=== PATIENT | female | born 1940 | race Caucasian/White ===

== ENCOUNTER → 2016-12-18 | Outpatient (CLI) | payer OTHER ==
[2016-09-04 07:44] VITALS: BP 160/72
--- NOTE | 2016-12-18 17:00 | MG ---
HISTORY: SCREENING Comparison: Multiple priors dating back to February 10, 2008 FINDINGS: Bilateral CC and MLO projections of the right and left breast were obtained. Extremely dense fibrog landular tissue is seen to be present without significant interval change. No suspicious architectu ral distortion, mass or clustered microcalcifications can be observed to suggest malignancy. No ski n thickening or nipple retraction is appreciated. No pathological lymphadenopathy can be identifie d. Benign-appearing calcifications are noted within the right and left breast. IMPRESSION: NO RADIOGRAPHIC EVIDENCE OF MALIGNANCY. ACR CATEGORY 2 - benign findings. FOLLOW-UP EXAM 1 YEAR. Diagnostic CAD was utilized and reviewed. * 0 (ZERO) - ASSESSMENT INCOMPLETE; ADDITIONAL IMAGING IS NEEDED. * 1/ (ONE) - NEGATIVE. * 2/II (TWO) - BENIGN FINDINGS. * 3/III (THREE) - PROBABLY BENIGN FINDING; SHORT INTERVAL FOLLOW-UP SUGGESTED. * 4/IV (FOUR) - SUSPICIOUS ABNORMALITY; BIOPSY SHOULD BE CONSIDERED. * 5/V (FIVE) - HIGHLY SUSPICIOUS OF MALIGNANCY; BIOPSY SHOULD BE PERFORMED. A NEGATIVE X-RAY REPORT SHOULD NOT DELAY BIOPSY IF A DOMINANT OR CLINICALLY SUSPICIOUS MASS IS PRESENT; 4 TO 8 PERCENT OF CANCERS ARE NOT IDENTIFIED BY X-RAY. A NEG ATIVE REPORT MAY REINFORCE THE CLINICAL IMPRESSION. ADENOSIS AND DENSE BREASTS MAY OBSCURE AN UNDER LYING NEOPLASM. Reported By:
== END ==
LOC: RAD 09:57
PROVIDERS: ATTEND Specialist
DX: Z12.31 Encounter for screening mammogram for malignant neoplasm of breast (principal)
CPT/HCPCS: 77067

== ENCOUNTER 2017-01-18 17:18 | Emergency (ER) | payer OTHER ==
[2017-01-18 17:23] VITALS: BMI 17.4
--- NOTE | 2017-01-18 17:49 | DR.GENAD ---
HPI - PCP Primary Care Physician: lola - HPI Comment HPI Comment: PATIENT WAS SITTING AND STATED PASSING OUT. SHE WAS HELD DID NOT FALL. BP WAS 70/40. LAYING DOWN SHE SAID SHE FELLS FINE. ORTHOSTIC BP IN ED WAS POSITIVE FOR ORTHOSTATIC HYPOTENSION. DENIES HEADACHE. - Complaint/Symptoms Chief Complaint Doctors Comments: PATIENT PASS OUT AT HOME, BP WAS LOW. 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 - Family History History of Family Medical Conditions: Yes Family Medical History: Diabetes Mellitus, Cancer, [place], Coronary Artery Disease, Heart Failure, Sudden Cardiac , Hypertension - Social History Does patient currently use any type of tobacco product: Yes Have you used tobacco products in the last 12 months: Yes Type of Tobacco Use: Cigarettes How many years tobacco product used: 30 Does any household member use tobacco: No Alcohol Use: None Do you use any recreational Drugs:: No Lives With: Family Lives Where: Home - infectious screening In the last 2 months have you had wt loss of >10#?: NO Have you had fever, night sweats or hemotysis?: No Have you traveled outside the country in the last 6 months?: No Isolation: Standard ROS - Review of Systems Constitutional: Weakness, Fatigue. negative: See HPI, Fever, Loss of Appetite Eyes: No Symptoms Reported. negative: Eye Pain, Discharge ENTM: No Symptoms Reported. negative: Ear Pain, Nose Discharge, Nose Congestion , Throat Pain Respiratoy: No Symptoms Reported, Short of Breath (ON EXERSION.). negative: Non -Productive Cough, Wheezing, Hemoptysis Cardiovascular: No Symptoms Reported, Chest Pain (SORENESS PRECORDIAL AREA) Genitourinary: No Symptoms Reported Neurological: Weakness, Dizziness Musculoskeletal: No Symptoms Reported Integumentary: No Symptoms Reported Hematologic/Lymphatic: No Symptoms Reported Endocrine: No Symptoms Reported All Other Systems: Reviewed and Negative PE - Vital Signs Vitals: Pulse Rate [Right Brachial] 84 Pulse Rate [Standing] 115 Pulse Rate [Sitting] 93 Pulse Rate 87 Respiratory Rate 18 Blood Pressure [Right Arm] 130/58 Blood Pressure [Standing] 81/51 Blood Pressure [Sitting] 94/48 Blood Pressure 93/45 O2 Sat by Pulse Oximetry 98 - General Limitations: No Limitations General Appearance: Alert - Head Head Exam: Normal Inspection - Eyes Eye exam: Normal Appearance - ENT ENT Exam: Normal External Ear Exam External Ear Exam: Normal External Inspection TM/Canal Exam: Bilateral Normal Nose Exam: Normal Nose Exam Mouth Exam: Normal Inspection Throat Exam: Normal Inspection - Neck Neck Exam: Trachea Midline - Chest Chest Inspection: Symmetric Chest Wall Rise - Respiratory Respiratory Exam: Normal Lung Sounds Bilat Respiratory Exam: Bilateral Rhonchi, Lower Rhonchi - Cardiovascular Cardiovascular Exam: Regular Rate, Normal Rhythm, Normal Heart Sounds - Abdominal Exam Abdominal Exam: Normal Bowel Sounds, Soft. negative: Tenderness - Extremities Extremities Exam: Normal Inspection - Back Back Exam: Normal Inspection - Neurologic Neurological Exam: Alert, Oriented X3, CN II-XII Intact, Reflexes Normal. negative: Motor Sensory Deficit - Psychiatric Psychiatric Exam: Normal Affect, Normal Mood - Skin Skin Exam: Normal Color MDM - Additional Information Additional Information Obtained From: Family - Differential Diagnosis Differential Diagnosis: SYNCOPAL EPISODE. [place], DEHYDRATION, ELECTRLYTE IMBALANCE. CVA, TIA Course - Treatment Treatment: SEE ORDERS. PATIENT DID NOT WISH TO BE OBSERVE IN HOSPITAL SIGN AMA. - Education/Counseling Education/Counseling: Patient, Education Educated On: Diagnosis, Needs for Follow Up ROR - Labs Reviewed Laboratory Results Reviewed?: Yes Result Diagrams: 01/18/17 17:30 01/18/17 17:30 Laboratory: WBC 8.6 X10^3/uL (3.6-10.0) 01/18/17 17:30 RBC 4.47 X10^6/uL (3.5-5.4) 01/18/17 17:30 Hgb 14.2 g/dL (12.0-16.0) 01/18/17 17:30 Hct 41.4 % (36.0-47.0) 01/18/17 17:30 MCV 92.8 fL (80.0-100.0) 01/18/17 17:30 MCH 31.7 pg (27.0-34.0) 01/18/17 17:30 MCHC 34.2 g/dL (33.0-35.0) 01/18/17 17:30 RDW 13.7 % (11.6-16.5) 01/18/17 17:30 Plt Count 317 X10^3/uL (150.0-450.0) 01/18/17 17:30 MPV 6.6 fL (7.4-11.0) L 01/18/17 17:30 Neut % 70.8 % (42.0-75.0) 01/18/17 17: Lymph % 20.8 % (21.0-51.0) L 01/18/17 17:30 [place] % 6.2 % (0.0-13.0) 01/18/17:30 Eos % 1.1 % (0.9-2.9) 01/18/17 17: Baso % 1.1 % (0.2-1.0) H 01/18/17 17:30 Neut # 6.1 x10^3/uL (2.2-4.8) H 01/18/17 17:30 Lymph # 1.8 X10^3/uL (1.3-2.9) 01/18/17 17:30 [place] # 0.5 x10^3/uL (0.3-0.8) 01/18/17 17:30 Eos # 0.1 x10^3/uL (0.0-0.2) 01/18/17 17:30 Baso # 0.1 X10^3/uL (0.0-0.1) 01/18/17 17:30 Absolute Nucleated RBC 0.0 /100WBC 01/18/17 17:30 Sodium 138 mmol/L (136-145) 01/18/17 17:30 Corrected Sodium 139 mmol/L (136-145) 01/18/17 17:30 Potassium 3.5 mmol/L (3.5-5.1) 01/18/17 17:30 Chloride 100 mmol/L (98-107) 01/18/17 17:30 Carbon Dioxide 30.5 mmol/L (21-32) 01/18/17 17:30 BUN 12 mg/dL (7-18) 01/18/17 17:30 Creatinine 1.21 mg/dL (0.55-1.02) H 01/18/17 17:30 Est GFR (MDRD) Af Amer 56 (>60) L 01/18/17 17:30 Est GFR (MDRD) Non-Af 46 (>60) L 01/18/17 17:30 Glucose 150 mg/dL (65-99) H 01/18/17 17:30 Calcium 9.3 mg/dL (8.5-10.1) 01/18/17 17:30 Corrected Calcium TNP 01/18/17 17:30 Total Bilirubin 0.70 mg/dL (0.2-1.0) 01/18/17 17:30 AST 13 Units/L (15-37) L 01/18/17 17:30 ALT 22 Units/L (12-78) 01/18/17 17:30 Alkaline Phosphatase 90 Units/L (46-116) 01/18/17 17:30 Creatine Kinase 43 Units/L (26-192) 01/18/17 17:30 CK-MB (CK-2) < 1.0 ng/mL (0-4.0) 01/18/17 17:30 CK/CKMB % Calc 2.3 % (<4) 01/18/17 17:30 Troponin I < 0.02 ng/mL (0-1.5) 01/18/17 17:30 Total Protein 8.0 g/dL (6.4-8.2) 01/18/17 17:30 Albumin 3.8 g/dL (3.4-5.0) 01/18/17 17:30 Globulin 4.2 g/dL (2.5-4.5) 01/18/17 17:30 Albumin/Globulin Ratio 0.9 Ratio (1.1-2.1) L 01/18/17 17:30 - XRAY XRAY Interpreted by: Radiologist XRAY Findings: REPORT DISCUSS WITH PATIENT AND FAMILY. - EKG Rhythm: NSR (EKG NOTED) - Diagnosis Discharge Problem: Syncope, Orthostatic hypotension - Discharge Plan Disposition: AGAINST MEDICAL ADVICE Condition: Stable - Follow ups/Referrals Follow ups/Referrals: CATARINO HOWARD [Primary Care Provider] - 3 days - Instructions
[2017-01-18] MEDS ORDERED: NS 1000 ML 1,000 ML ONE (17:55)
[2017-01-18] MEDS ORDERED: NS 1000 ML 1,000 ML IV ONE (17:57)
[2017-01-18 18:02] LABS: BASOPHILS # (AUTO) 0.1 X10^3/uL (0.0-0.1); BASOPHILS % (AUTO) 1.1 % (0.2-1.0); EOSINOPHILS # (AUTO) 0.1 x10^3/uL (0.0-0.2); EOSINOPHILS % (AUTO) 1.1 % (0.9-2.9); HEMATOCRIT 41.4 % (36.0-47.0); HEMOGLOBIN 14.2 g/dL (12.0-16.0); LYMPHOCYTES # (AUTO) 1.8 X10^3/uL (1.3-2.9); LYMPHOCYTES % (AUTO) 20.8 % (21.0-51.0); MEAN CORPUSCULAR HEMOGLOBIN 31.7 pg (27.0-34.0); MEAN CORPUSCULAR HGB CONC 34.2 g/dL (33.0-35.0); MEAN CORPUSCULAR VOLUME 92.8 fL (80.0-100.0); MEAN PLATELET VOLUME 6.6 fL (7.4-11.0); MONOCYTES # (AUTO) 0.5 x10^3/uL (0.3-0.8); MONOCYTES % (AUTO) 6.2 % (0.0-13.0); NEUTROPHILS # (AUTO) 6.1 x10^3/uL (2.2-4.8); NEUTROPHILS % (AUTO) 70.8 % (42.0-75.0); PLATELET COUNT 317 X10^3/uL (150.0-450.0); RED BLOOD COUNT 4.47 X10^6/uL (3.5-5.4); RED CELL DISTRIBUTION WIDTH 13.7 % (11.6-16.5); WHITE BLOOD COUNT 8.6 X10^3/uL (3.6-10.0)
--- NOTE | 2017-01-18 18:11 | RAD ---
HISTORY: Chest pain, low blood pressure Study: Single view of the chest Comparison: October 01, 2016 Findings: The trachea is midline. The cardiac silhouette is unremarkable. Interstitial changes are seen with in both lungs. Biapical pleural thickening is noted. The lung apices are not entirely included. Gran ulomatous changes are again noted within both lungs. The aortic knob is partially calcified. IMPRESSION: 1. No acute cardiopulmonary disease. Reported By:
[2017-01-18 18:17] LABS: BLOOD UREA NITROGEN 12 mg/dL (7-18); CALCIUM 9.3 mg/dL (8.5-10.1); CARBON DIOXIDE 30.5 mmol/L (21-32); CHLORIDE 100 mmol/L (98-107); COR NA(FOR HYPERGLY) 139 mmol/L (136-145); CREATININE 1.21 mg/dL (0.55-1.02); GLUCOSE 150 mg/dL (65-99); SODIUM 138 mmol/L (136-145); TROPONIN I < 0.02 ng/mL (0-1.5); eGFR BLACK RACES 56 (>60); eGFR NON BLACK RACES 46 (>60)
[2017-01-18 18:22] LABS: ALANINE AMINOTRANSFERASE 22 Units/L (12-78); ALBUMIN 3.8 g/dL (3.4-5.0); ALKALINE PHOSPHATASE 90 Units/L (46-116); ASPARTATE AMINO TRANSFERASE 13 Units/L (15-37); CREATINE KINASE 43 Units/L (26-192); CREATINE KINASE MB < 1.0 ng/mL (0-4.0)
[2017-01-18 18:28] LABS: CKMB % 2.3 % (<4)
[2017-01-18 18:37] VITALS: BP 130/58
== END 2017-01-18 19:13 | disposition left against medical advice (07) ==
LOC: ER 17:26
DX: R55 Syncope and collapse (principal); I95.1 Orthostatic hypotension
CPT/HCPCS: 36415; 71010; 80053; 82550; 82553; 84484; 85025; 93005; 93010; 96365; 99283; A4222

== ENCOUNTER 2017-02-13 19:47 | Emergency (ER) | payer OTHER ==
[2017-02-13 19:57] VITALS: BP 158/62; BMI 17.6
[2017-02-13] MEDS ORDERED: ROCEPHIN VIAL 1 GM IM ONE (21:36)
[2017-02-13] MEDS ORDERED: ADACEL TDaP IM ONE ×2 (21:37→22:00)
--- NOTE | 2017-02-13 21:41 | DR.GENAD ---
HPI - PCP Primary Care Physician: Sally - Complaint/Symptoms Chief Complaint Doctors Comments: Swelling left leg after having skin cancer removed at the [facility] about eight days ago. States she had multiple lesions removed but none turned red like this one. States she has been having pain in her left leg but denies fever, chills, nausea, vomiting or drainage from the lesion. States she is allergic to Penicillin and Codiene. She is unsure of her last tetanus shot. She denies chest pain or SOB. States she just want an antibiotic shot and medicines for an infection. Chief Complaint:: "About 8 days ago I had skin cancer removed from 7 different places. 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, 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 - Family History History of Family Medical Conditions: Yes Family Medical History: Diabetes Mellitus, Cancer, [place], Coronary Artery Disease, Heart Failure, Sudden Cardiac , Hypertension - Social History Does patient currently use any type of tobacco product: No Have you used tobacco products in the last 12 months: No Type of Tobacco Use: None Does any household member use tobacco: No Alcohol Use: None Do you use any recreational Drugs:: No Lives With: Family Lives Where: Home - infectious screening In the last 2 months have you had wt loss of >10#?: NO Have you had fever, night sweats or hemotysis?: No Have you traveled outside the country in the last 6 months?: No Isolation: Standard ROS - Review of Systems Constitutional: No Symptoms Reported. negative: See HPI, Chills, Diaphoresis, Fever, Malaise, Weakness, Irritable, Fatigue, Loss of Appetite, Other Eyes: No Symptoms Reported ENTM: No Symptoms Reported Respiratoy: No Symptoms Reported Cardiovascular: No Symptoms Reported Gastrointestinal/Abdominal: No Symptoms Reported Genitourinary: No Symptoms Reported Neurological: No Symptoms Reported. negative: See HPI, Anxiety, Depressed, Emotional Problems, Headache, Numbness, Paresthesia, Pre-existing Deficit, Seizure, Tingling, Tremors, Weakness, Dizziness, Problems Walking, Speech Problem, Other Musculoskeletal: No Symptoms Reported, Left, Leg (erythema) Integumentary: No Symptoms Reported, Lesions (surgical wound left lower leg; no discharge) Hematologic/Lymphatic: No Symptoms Reported Endocrine: No Symptoms Reported. negative: See HPI, Excessive Sweating, Flushing, Intolerance to Cold, Intolerance to Heat, Increased Hunger, Increased Thirst, Increased Urine, Unexplained Weight Gain, Unexplained Weight Loss, Failure to Thrive, Decreased Appetite, Other Psychiatric: No Symptoms Reported PE - Vital Signs Vitals: Temperature 98.4 F Pulse Rate 88 Respiratory Rate 18 Blood Pressure [Right Arm] 130/58 Blood Pressure [Standing] 81/51 Blood Pressure [Sitting] 94/48 Blood Pressure 158/62 O2 Sat by Pulse Oximetry 98 - General Limitations: No Limitations General Appearance: Alert, In Distress (mild) - Head Head Exam: Normal Inspection, Atraumatic, Normocephalic - Eyes Eye exam: Normal Appearance, PERRL, EOMI. negative: Scleral Icterus, Conjunctival Injection, Nystagmus, Miosis, Mydrasis, Periorbital Swelling, Periorbital Tenderness, Other - ENT ENT Exam: Normal Exam, Normal Oropharynx, Normal External Ear Exam, Mucous Membranes Moist, TM's Normal Bilaterally External Ear Exam: Normal External Inspection TM/Canal Exam: Bilateral Normal Nose Exam: Normal Nose Exam. negative: Sinus Tenderness, Nasal Deviation, Crepitus, Septal Hematoma, Laceration, Abrasion, Other Mouth Exam: Normal Inspection. negative: Drooling, Trismus, Lip Swelling, Tongue Elevation, Tongue Swelling, Laceration, Other Throat Exam: Normal Inspection. negative: Tonsillar Erythema, Tonsillomegaly, Tonsillar Exudate, R Peritonsillar Mass, L Peritonsillar Mass, Muffled Voice, Other - Neck Neck Exam: Normal Inspection, Full ROM, Trachea Midline. negative: Tenderness, Meningismus, Lymphadenopathy, Thyromegaly, Other - Chest Chest Inspection: Normal Inspection, Symmetric Chest Wall Rise - Respiratory Respiratory Exam: Normal Lung Sounds Bilat Respiratory Exam: Bilateral Clear to Auscultation - Cardiovascular Cardiovascular Exam: Regular Rate, Normal Rhythm, Normal Heart Sounds. negative : Bradycardia, Tachycardia, Irregular Rhythm, Systolic Murmur, Diastolic Murmur , Rubs, Gallop, Clicks, JVD, +S1, +S2, +S3, +S4, Other - Abdominal Exam Abdominal Exam: Normal Inspection, Normal Bowel Sounds, Soft. negative: Distention, Tenderness, Guarding, Rebound, Rigidity, Dimnished Bowel Sounds, Hyperactive Bowel Sounds, Hypoactive Bowel Sounds, Organomegaly, Trauma, Incision, Ascites, Mass, Bruit, Pulsatile Mass, Hernia, Other Abdominal Tenderness: negative: RUQ, RLQ, LUQ, LLQ, Epigastrium, Suprapubic, Diffuse, Mild, Moderate, Severe, Other - Extremities Extremities Exam: Normal Inspection, Full ROM, Tenderness (left lower extremity with erythema; macular erythema ), Normal Capillary Refill - Back Back Exam: Normal Inspection, Full ROM. negative: Tenderness, (R) CVA Tenderness, (L) CVA Tenderness, Muscle Spasm, Paraspinal Tenderness, Vertebral Tenderness, Rashes, (R) Sciatic Notch Tenderness, (L) Sciatic Notch Tendern, (R ) Straight Leg Raise, (L) Straight Leg Raise, Other - Neurologic Neurological Exam: Alert, Oriented X3, CN II-XII Intact, Normal Gait, Reflexes Normal - Skin Skin Exam: Warm, Dry, Intact, Normal Color - Diagnosis Discharge Problem: Cellulitis of left leg, Essential hypertension - Discharge Plan Disposition: 01 HOME, SELF-CARE Condition: Stable Prescriptions: Cephalexin [KEFLEX CAP 500 MG *] 500 mg PO TID #30 cap Levofloxacin [LEVAQUIN TAB 500 MG *] 500 mg PO DAILY #10 tab Mupirocin Oint [BACTROBAN OINT 2%] 1 applic EXT BID #22 gm - Follow ups/Referrals Follow ups/Referrals: CATARINO HOWARD [Primary Care Provider] - 3 days - Instructions Instructions: Cellulitis, MRSA Infection, Adult, Hypertension, [id number]
[2017-02-13] MEDS ORDERED: ROCEPHIN VIAL 1 GM ONE (21:59)
[2017-02-13] MEDS ORDERED: RIFADIN CAP 300 MG PO SCH (22:00)
[2017-02-13] MEDS ORDERED: XYLOCAINE 1 % (PLAIN) ONE (22:00)
[2017-02-13] MEDS ORDERED: RIFADIN CAP 300 MG PO ONE (22:14)
== END 2017-02-13 22:15 | disposition home or self-care (01) ==
LOC: ER 20:01
DX: L03.116 Cellulitis of left lower limb (principal); I10 Essential (primary) hypertension
CPT/HCPCS: 90471; 96372; 99282; 99283; J0696; J2001

== ENCOUNTER 2017-04-23 07:46 | Day surgery (SDC) | payer OTHER ==
[2017-04-23] MEDS ORDERED: D5 LR 1000 ML 1,000 ML IV ONE (07:54)
[2017-04-23] MEDS ORDERED: DIPRIVAN VIAL 20 ML ONE (09:06)
[2017-04-23 10:12] VITALS: BP 156/73
== END 2017-04-23 09:50 | disposition home or self-care (01) ==
LOC: SURG1 07:46
PROVIDERS: ATTEND Internal Medicine Gastroenterology
PROC: 0DB68ZX Excision of Stomach, Via Natural or Artificial Opening Endoscopic, Diagnostic (ICD-10-PCS; principal; 2017-04-23 09:45)
PROC: 0D757ZZ Dilation of Esophagus, Via Natural or Artificial Opening (ICD-10-PCS; principal; 2017-04-23 09:45)
PROC: 0DB88ZX Excision of Small Intestine, Via Natural or Artificial Opening Endoscopic, Diagnostic (ICD-10-PCS; principal; 2017-04-23 09:45)
PROC: 0DJ08ZZ Inspection of Upper Intestinal Tract, Via Natural or Artificial Opening Endoscopic (ICD-10-PCS; principal; 2017-04-23 09:45)
DX: R13.19 Other dysphagia (principal); R10.13 Epigastric pain; K21.9 Gastro-esophageal reflux disease without esophagitis; K20.8 Other esophagitis; K22.2 Esophageal obstruction; K29.60 Other gastritis without bleeding
CPT/HCPCS: A4217; J3490; J7120

== ENCOUNTER → 2017-05-13 | Outpatient (CLI) | payer OTHER ==
[2017-04-23 10:12] VITALS: BP 156/73
== END ==
LOC: LAB 09:51
PROVIDERS: ATTEND Internal Medicine Gastroenterology
DX: Z86.010 Personal history of colon polyps (principal)
CPT/HCPCS: 82270

== ENCOUNTER → 2017-06-02 | Outpatient (CLI) | payer OTHER ==
--- NOTE | 2017-06-03 11:17 | RAD ---
HISTORY: Neck pain Study: 3 views of the cervical spine. Comparison: None Findings: Grade 1 anterolisthesis of C5 on C6. Severe multilevel degenerative disc disease. The vertebral body heights are normal. No prevertebral soft tissue swelling can be identified. The odontoid appears in tact. The lateral masses of C1 align with the body of C2. IMPRESSION: 1. Severe multilevel degenerative disc disease with grade 1 anterolisthesis of C4 on C5 Reported By:
== END | disposition home or self-care (01) ==
LOC: RAD 09:44
PROVIDERS: ATTEND Internal Medicine Cardiovascular Disease
DX: M54.2 Cervicalgia (principal); M50.321 Other cervical disc degeneration at C4-C5 level
CPT/HCPCS: 72040

== ENCOUNTER → 2017-09-01 | Outpatient (CLI) | payer OTHER ==
[2017-08-11 15:30] VITALS: BP 143/67
--- NOTE | 2017-09-01 10:50 | MRI ---
MRI SPINE CERVICAL WITHOUT CONTRAST CLINICAL HISTORY: 77-year-old female with chronic neck pain and left radicular symptoms. COMPARISON: Radiographs of the cervical spine 06/02/2017. Technique: Multiplanar, multisequence MRI images of the cervical spine were obtained without the adm inistration of intravenous contrast. FINDINGS: Straightening of the cervical lordosis as imaged. Subtle degenerative anterolisthesis C4 on C5 and retrolisthesis C6 on C7. The craniocervical junction is normal. Overall preservation of verte bral body height and signal. Loss of disc space and signal C6-C7. Remaining disc height and signal ar e preserved. Cord signal is normal. The visualized posterior fossa structures are normal. C2-C3: No central canal stenosis. Severe left-sided facet and uncovertebral joint hypertrophy with sp urring produces moderate left neural foraminal stenosis. C3-C4: Broad-based disc osteophyte complex narrows canal 9.4 mm. Uncovertebral and facet joint hypert rophy produce mild left neural foraminal stenosis. C4-C5: Broad-based disc osteophyte complex narrows canal 9.3 mm. Uncovertebral and facet joint hypert rophy produce mild right neural foraminal stenosis. C5-C6: Broad-based disc osteophyte with a left central component effaces the ventral subarachnoid spa mauri with mild flattening of the left ventral cord without cord signal change. Uncovertebral and facet joint hypertrophy produce mild right neural foraminal stenosis. C6-C7: Broad-based disc osteophyte complex with a central component effaces the ventral subarachnoid spaces with flattening of the ventral cord without cord signal change. Central canal measures 6.5 mm. Uncovertebral and facet joint hypertrophy produce mild right neural foraminal stenosis. C7-T1: Broad-based disc osteophyte complex narrows canal at 10.3 mm without cord impingement or signa l change uncovertebral facet joint hypertrophy produce mild right neural foraminal stenosis. Paraspinous soft tissues are unremarkable. IMPRESSION: 1. Multilevel disc degeneration and spondyloarthropathy. 2. See level by level descriptions above. Reported By:
== END ==
LOC: RAD 09:13
PROVIDERS: ATTEND Nurse Practitioner Family
DX: M50.321 Other cervical disc degeneration at C4-C5 level (principal)
CPT/HCPCS: 72141

== ENCOUNTER 2017-10-09 12:02 | Observation (INO) | payer OTHER ==
[2017-10-09] MEDS ORDERED: ZOFRAN INJ 4 MG VIAL IVP PRN (13:31)
[2017-10-09] MEDS ORDERED: APRESOLINE INJ 20 MG VIAL IVP PRN (13:31)
--- NOTE | 2017-10-09 14:06 | DR.H&P ---
H&P - History & Physical for Day of: H&P Date: 10/09/17 - Chief Complaint Chief Complaint: severe ESPAÑA, dizziness, elevated blood pressure - Allergies Allergies/Adverse Reactions: Allergies Allergy/AdvReac Type Severity Reaction Status Date / Time codeine Allergy Verified 08/11/17 14:57 levofloxacin Allergy Verified 08/11/17 14:57 Penicillins Allergy Verified 08/11/17 14:57 Sulfa (Sulfonamide Allergy Verified 08/11/17 14:57 Antibiotics) [SULFA] - History of Present Illness History of Present Illness: PT IS 77 WF DIRECT ADMIT FROM DR FAULKNER OFFICE WITH CO INTRACTABLE ESPAÑA, DIZZINESS AND ELEVATED BLOOD PRESSURE. PT BP IN OFFICE WAS 220/110 PT GIVEN CATAPREX 0.1MG PO X 1 DOSE WITH BP 188/100. PT CONTINUES TO CO ESPAÑA AND DIZZINESS. PT HAS 2 KNOWN CEREBROVASCULAR ANEURYSMS FOLLOWED BY NEUROVASCULAR SURGEON. PT HAD COPD, CAD, LORENA, OA, GERD. PT ADMITTED FOR BP CONTROL AND TREATMENT AND EVALUATION OF ESPAÑA. 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, Other - Family History Family Medical History: Diabetes Mellitus, Cancer, [place], Coronary Artery Disease, Heart Failure, Sudden Cardiac , Hypertension - Social History Does patient currently use any type of tobacco product: No Have you used tobacco products in the last 12 months: Yes Type of Tobacco Use: Cigarettes Does any household member use tobacco: No Alcohol Use: None Drug Use: None - Review of Systems Constitutional: Weakness Eyes: No Symptoms Reported ENT: No Symptoms Reported Respiratory: No Symptoms Reported Cardiovascular: No Symptoms Reported Gastrointestinal: No Symptoms Reported, Nausea Musculoskeletal: Back Pain, Neck Pain Skin: No Symptoms Reported Neurological: Weakness, Other (DIZZINESS) - Physical Exam Vital Signs: Temperature 98.7 F Pulse Rate [Left Brachial] 71 Respiratory Rate 20 Blood Pressure [Left Arm] 142/67 Blood Pressure [Right Arm] 143/67 Blood Pressure [Standing] 81/51 Blood Pressure [Sitting] 94/48 Blood Pressure 143/67 O2 Sat by Pulse Oximetry 97 Oriented: Normal Eyes: Normal Ear: Normal Nose: Normal Throat: Normal Respiratory: RLL Diminished, LLL Diminished Cardiovascular: Normal : Normal Auscultation: Bowel Sounds: Normal Tenderness: Normal Skin: Normal Musculoskeletal: Back:Thoracic, Back:Lumbar, Tender (NECK TENDERNESS) Psychiatric: Anxiety Affect: Anxious Speech Pattern: Clear, Appropriate - Assessment/Plan (1) Hypertensive urgency Status: Acute Plan: ADMIT, BP CONTROL. CARDIAC ENZYMES AND EKG. CXR ON ADMISSION, SUPPLEMENTAL O2 PRN, CT BRAIN W/O STAT. PAIN CONTROL. RESUME HOME MEDS (2) Dizziness Status: Acute (3) Headache Status: Acute (4) LORENA (generalized anxiety disorder) Status: Acute (5) COPD (chronic obstructive pulmonary disease) Status: Chronic
[2017-10-09 14:10] LABS: BASOPHILS # (AUTO) 0.1 X10^3/uL (0.0-0.1); BASOPHILS % (AUTO) 1.2 % (0.2-1.0); EOSINOPHILS % (AUTO) 0.4 % (0.9-2.9); HEMATOCRIT 34.7 % (36.0-47.0); HEMOGLOBIN 12.3 g/dL (12.0-16.0); LYMPHOCYTES # (AUTO) 1.5 X10^3/uL (1.3-2.9); LYMPHOCYTES % (AUTO) 15.2 % (21.0-51.0); MEAN CORPUSCULAR HEMOGLOBIN 32.9 pg (27.0-34.0); MEAN CORPUSCULAR HGB CONC 35.3 g/dL (33.0-35.0); MEAN CORPUSCULAR VOLUME 93.1 fL (80.0-100.0); MEAN PLATELET VOLUME 6.6 fL (7.4-11.0); MONOCYTES # (AUTO) 0.6 x10^3/uL (0.3-0.8); MONOCYTES % (AUTO) 5.5 % (0.0-13.0); NEUTROPHILS # (AUTO) 7.9 x10^3/uL (2.2-4.8); NEUTROPHILS % (AUTO) 77.7 % (42.0-75.0); PLATELET COUNT 248 X10^3/uL (150.0-450.0); RED BLOOD COUNT 3.73 X10^6/uL (3.5-5.4); RED CELL DISTRIBUTION WIDTH 13.7 % (11.6-16.5); WHITE BLOOD COUNT 10.1 X10^3/uL (3.6-10.0)
[2017-10-09] MEDS: NORCO 10/325 TAB PO PRN ×2 (14:10→20:51)
[2017-10-09 14:25] LABS: ALANINE AMINOTRANSFERASE 28 Units/L (12-78); ALBUMIN 3.4 g/dL (3.4-5.0); ALKALINE PHOSPHATASE 94 Units/L (46-116); ASPARTATE AMINO TRANSFERASE 20 Units/L (15-37); BLOOD UREA NITROGEN 13 mg/dL (7-18); CALCIUM 9.2 mg/dL (8.5-10.1); CARBON DIOXIDE 30.2 mmol/L (21-32); CHLORIDE 100 mmol/L (98-107); CKMB % 2.1 % (<4); CREATINE KINASE 71 Units/L (26-192); CREATINE KINASE MB 1.5 ng/mL (0-4.0); CREATININE 0.94 mg/dL (0.55-1.02); SODIUM 136 mmol/L (136-145); TROPONIN I < 0.02 ng/mL (0-1.5); eGFR BLACK RACES > 60 (>60); eGFR NON BLACK RACES > 60 (>60)
[2017-10-09 14:31] LABS: BILIRUBIN,URINE NEGATIVE (NEGATIVE); BLOOD/HEMOGLOBIN,URINE 2+ (NEGATIVE); GLUCOSE, URINE NEGATIVE (NEGATIVE); KETONES,URINE NEGATIVE (NEGATIVE); LEUKOCYTE ESTERASE ,URINE NEGATIVE (NEGATIVE); NITRITES,URINE NEGATIVE (NEGATIVE); PROTEIN,URINE 1+ (NEGATIVE); UROBILINOGEN,URINE NORMAL (NORMAL)
[2017-10-09 14:39] LABS: APPEARANCE,URINE CLEAR (CLEAR); BACTERIA,URINE NEGATIVE /HPF (NEGATIVE); COLOR,URINE YELLOW (YELLOW); RBC,URINE 0-1 /HPF (NONE SEEN); SQUAMOUS EPITHELIAL CELL,UR RARE /HPF (NEGATIVE)
--- NOTE | 2017-10-09 15:13 | RAD ---
Examination: AP chest History: Headache, hypertension Comparison 01/18/2017 Findings: Continued normal heart size, arteriosclerotic aorta, hyperinflated lungs. Calcifications pr ojected over the right lower chest may be within the lung or breast. There is no evidence for acute i nfiltrate or pleural effusion. There is a moderate scoliosis. Impression: No interval change or acute findings. Reported By:
--- NOTE | 2017-10-09 15:21 | CT ---
HISTORY: Headache with high blood pressure. Study: CT brain without contrast Comparison: CT head dated October 25, 2013. Technique: Multiple axial images of the brain were obtained from the skull base to the vertex without administra tion of IV contrast. Dose reduction techniques including Automated Exposure Control (AEC) and adjust ment of mA and kV were utilized. Findings: Age-related cortical atrophy and chronic small vessel ischemic changes. No acute intraparenchymal hem orrhage or mass can be identified. No extra-axial fluid collections are seen. No alteration in the attenuation of the brain parenchyma can be identified to suggest acute or subacute ischemic change. The ventricular system is symmetric and nondilated. The extracranial structures are grossly unremark able. IMPRESSION: No obvious acute intracranial pathology. If clinically concerned for acute ischemia/infar ction, MRI brain is more sensitive. Reported By:
[2017-10-09] MEDS ORDERED: ULTRAM PO PRN (17:24)
[2017-10-09] MEDS ORDERED: RESTORIL CAP 15 MG PO PRN (20:10)
[2017-10-09] MEDS: PATIENT'S HOME MEDICATION PO SCH (20:46)
[2017-10-09] MEDS: PriLOSEC PO SCH (20:51)
[2017-10-09] MEDS ORDERED: AMBIEN PO PRN (21:00)
[2017-10-09] MEDS ORDERED: XANAX PO PRN (21:00)
[2017-10-09] MEDS ORDERED: REQUIP PO SCH (21:00)
[2017-10-09] MEDS ORDERED: SINGULAIR TAB 10 MG PO SCH (21:00)
[2017-10-10 06:54] LABS: BASOPHILS # (AUTO) 0.1 X10^3/uL (0.0-0.1); BASOPHILS % (AUTO) 2.4 % (0.2-1.0); EOSINOPHILS # (AUTO) 0.2 x10^3/uL (0.0-0.2); EOSINOPHILS % (AUTO) 3.9 % (0.9-2.9); HEMATOCRIT 34.7 % (36.0-47.0); HEMOGLOBIN 12.1 g/dL (12.0-16.0); LYMPHOCYTES # (AUTO) 1.9 X10^3/uL (1.3-2.9); LYMPHOCYTES % (AUTO) 37.4 % (21.0-51.0); MEAN CORPUSCULAR HEMOGLOBIN 32.5 pg (27.0-34.0); MEAN CORPUSCULAR HGB CONC 34.9 g/dL (33.0-35.0); MEAN PLATELET VOLUME 6.8 fL (7.4-11.0); MONOCYTES # (AUTO) 0.5 x10^3/uL (0.3-0.8); MONOCYTES % (AUTO) 9.8 % (0.0-13.0); NEUTROPHILS # (AUTO) 2.4 x10^3/uL (2.2-4.8); NEUTROPHILS % (AUTO) 46.5 % (42.0-75.0); PLATELET COUNT 264 X10^3/uL (150.0-450.0); RED BLOOD COUNT 3.73 X10^6/uL (3.5-5.4); RED CELL DISTRIBUTION WIDTH 13.9 % (11.6-16.5); WHITE BLOOD COUNT 5.1 X10^3/uL (3.6-10.0)
[2017-10-10 07:01] LABS: ALANINE AMINOTRANSFERASE 25 Units/L (12-78); ALBUMIN 3.1 g/dL (3.4-5.0); ALKALINE PHOSPHATASE 84 Units/L (46-116); ASPARTATE AMINO TRANSFERASE 18 Units/L (15-37); BLOOD UREA NITROGEN 15 mg/dL (7-18); CALCIUM 9.1 mg/dL (8.5-10.1); CARBON DIOXIDE 30.2 mmol/L (21-32); CHLORIDE 103 mmol/L (98-107); COR CA(FOR HYPOALB) 9.8 mg/dL (8.5-10.1); CREATININE 1.03 mg/dL (0.55-1.02); SODIUM 140 mmol/L (136-145); TOTAL PROTEIN 6.7 g/dL (6.4-8.2); eGFR BLACK RACES > 60 (>60); eGFR NON BLACK RACES 55 (>60)
[2017-10-10] MEDS: PriLOSEC PO SCH (08:33)
[2017-10-10] MEDS: PATIENT'S HOME MEDICATION PO SCH (08:34)
[2017-10-10] MEDS ORDERED: ZYLOPRIM PO SCH (09:00)
[2017-10-10] MEDS ORDERED: MOBIC TAB 15 MG PO SCH (09:00)
[2017-10-10] MEDS ORDERED: TOPROL XL PO SCH (09:00)
[2017-10-10] MEDS ORDERED: FLEXERIL TAB 10 MG PO SCH (09:00)
[2017-10-10 11:52] VITALS: BMI 15.7
[2017-10-10] MEDS ORDERED: ZESTRIL TAB 10 MG ONE (14:41)
[2017-10-10 14:46] VITALS: BP 136/58
[2017-10-11] MEDS ORDERED: ZESTRIL TAB 10 MG PO SCH (09:00)
== END 2017-10-10 14:55 | disposition home or self-care (01) ==
LOC: ICU 12:02
PROVIDERS: ADMIT Internal Medicine; ATTEND Internal Medicine
DX: I16.0 Hypertensive urgency (principal); R51 Headache; R42 Dizziness and giddiness; J44.9 Chronic obstructive pulmonary disease, unspecified; Z66 Do not resuscitate; F41.8 Other specified anxiety disorders; R94.31 Abnormal electrocardiogram [ECG] [EKG]
CPT/HCPCS: 36415; 70450; 71045; 80053; 81001; 82550; 82553; 84484; 85025; 93005; 93010; A4216; A4222; G0378

== ENCOUNTER → 2017-12-30 | Outpatient (CLI) | payer OTHER ==
--- NOTE | 2017-12-31 16:37 | MG ---
HISTORY: SCREENING Comparison: Multiple priors dating back to March 09, 2014 FINDINGS: Bilateral CC and MLO projections of the right and left breast were obtained. Extremely dense fibrogl andular tissue is seen to be present without significant interval change. No suspicious architectura l distortion, mass or clustered microcalcifications can be observed to suggest malignancy. No skin t hickening or nipple retraction is appreciated. No pathological lymphadenopathy can be identified. B enign-appearing calcifications are noted within the right and left breast. IMPRESSION: NO RADIOGRAPHIC EVIDENCE OF MALIGNANCY. ACR CATEGORY 2 - benign findings. FOLLOW-UP EXAM 1 YEAR. Diagnostic CAD was utilized and reviewed. * 0 (ZERO) - ASSESSMENT INCOMPLETE; ADDITIONAL IMAGING IS NEEDED. * 1/ (ONE) - NEGATIVE. * 2/II (TWO) - BENIGN FINDINGS. * 3/III (THREE) - PROBABLY BENIGN FINDING; SHORT INTERVAL FOLLOW-UP SUGGESTED. * 4/IV (FOUR) - SUSPICIOUS ABNORMALITY; BIOPSY SHOULD BE CONSIDERED. * 5/V - HIGHLY SUSPICIOUS OF MALIGNANCY; BIOPSY SHOULD BE PERFORMED. A NEGATIVE X-RAY REPORT SHOULD NOT DELAY BIOPSY IF A DOMINANT OR CLINICALLY SUSPICIOUS MASS IS PRESENT; 4 TO 8 PERCENT OF CANCERS ARE NOT IDENTIFIED BY X-RAY. A NEGA TIVE REPORT MAY REINFORCE THE CLINICAL IMPRESSION. ADENOSIS AND DENSE BREASTS MAY OBSCURE AN UNDERLY ING NEOPLASM. Reported By:
== END ==
LOC: RAD 10:19
PROVIDERS: ATTEND Specialist
DX: Z12.31 Encounter for screening mammogram for malignant neoplasm of breast (principal)
CPT/HCPCS: 77067

== ENCOUNTER 2019-02-09 15:16 | Inpatient (IN) ==
[2019-02-09 17:18] VITALS: BMI 17.9
[2019-02-09] MEDS ORDERED: STERILE WATER IRRIGATION ONE (17:29)
[2019-02-09] MEDS ORDERED: PERCOCET TAB 5/325 MG PO PRN (17:56)
[2019-02-09] MEDS ORDERED: ULTRAM PO PRN (18:01)
[2019-02-09 18:32] LABS: BASOPHILS # (AUTO) 0.1 X10^3/uL (0.0-0.1); BASOPHILS % (AUTO) 1.1 % (0.2-1.0); EOSINOPHILS # (AUTO) 0.1 x10^3/uL (0.0-0.2); EOSINOPHILS % (AUTO) 1.1 % (0.9-2.9); HEMATOCRIT 35.3 % (36.0-47.0); HEMOGLOBIN 12.3 g/dL (12.0-16.0); LYMPHOCYTES # (AUTO) 2.2 X10^3/uL (1.3-2.9); LYMPHOCYTES % (AUTO) 26.1 % (21.0-51.0); MEAN CORPUSCULAR HEMOGLOBIN 31.5 pg (27.0-34.0); MEAN CORPUSCULAR HGB CONC 34.9 g/dL (33.0-35.0); MEAN CORPUSCULAR VOLUME 90.2 fL (80.0-100.0); MEAN PLATELET VOLUME 6.3 fL (7.4-11.0); MONOCYTES # (AUTO) 0.5 x10^3/uL (0.3-0.8); MONOCYTES % (AUTO) 6.2 % (0.0-13.0); NEUTROPHILS # (AUTO) 5.6 x10^3/uL (2.2-4.8); NEUTROPHILS % (AUTO) 65.5 % (42.0-75.0); PLATELET COUNT 296 X10^3/uL (150.0-450.0); RED BLOOD COUNT 3.91 X10^6/uL (3.5-5.4); RED CELL DISTRIBUTION WIDTH 14.6 % (11.6-16.5); WHITE BLOOD COUNT 8.6 X10^3/uL (3.6-10.0)
--- NOTE | 2019-02-09 18:32 | DR.H&P ---
H&P - History & Physical for Day of: H&P Date: 02/09/19 - Chief Complaint Chief Complaint: right leg red, swollen, hot to touch and very tender - History of Present Illness History of Present Illness: 78 WF DIRECT ADMIT FROM DR FAULKNER OFFICE WITH CO RRL REDNESS AND EDEMA WITH INCREASED WARMTH AND TENDERNESS FOR 3 WEEKS. PT HAS TAKEN DIURETICS, ELEVATED AND TAKEN ROUND OF ANTIBIOTICS WITHOUT IMROVEMENT. PT HAD US RLE NEGATIVE FOR DVT. PT HAS PMH OF HTN, CAD, COPD, BRAIN ANEURYSM, OA. PT ADMITTED FOR TREATMENT OF CELLULITIS, FAILED OUTPT THERAPY. - Past Medical History Past Medical History: Hypertension, COPD, Asthma, Arthritis - Past Surgical History Surgical History: Other - Family History Family Medical History: [place], Hypertension - Social History Does patient currently use any type of tobacco product: Yes Have you used tobacco products in the last 12 months: Yes Type of Tobacco Use: Cigarettes How many years tobacco product used: 43 Does any household member use tobacco: No Alcohol Use: None Drug Use: Prescription Drugs - Medications Home Medications: codeine Allergy (Verified 11/12/18 08:45) levofloxacin Allergy (Verified 11/12/18 08:45) Penicillins Allergy (Verified 11/12/18 08:45) Sulfa (Sulfonamide Antibiotics) [SULFA] Allergy (Verified 11/12/18 08:45) - Review of Systems Constitutional: Weakness Eyes: No Symptoms Reported ENT: No Symptoms Reported Respiratory: Shortness of Breath Cardiovascular: Edema Gastrointestinal: No Symptoms Reported Genitourinary: No Symptoms Reported Musculoskeletal: Back Pain, Leg Pain Skin: Other (REDNESS RLE) Neurological: No Symptoms Reported - Physical Exam Vital Signs: Temperature 98.0 F Pulse Rate [Right Brachial] 62 Respiratory Rate 20 Blood Pressure [Left Arm] 169/78 Blood Pressure [Right Arm] 132/63 Blood Pressure [Standing] 81/51 Blood Pressure [Sitting] 94/48 Blood Pressure 169/78 O2 Sat by Pulse Oximetry 96 Oriented: Normal Eyes: Normal Ear: Normal Nose: Normal Throat: Normal Respiratory: RLL Diminished, LLL Diminished Cardiovascular: Normal, Edema : Normal Auscultation: Bowel Sounds: Normal Palpation: Normal Tenderness: Normal Skin: Red, Tender, Hot Musculoskeletal: Right, Leg, Back:Lumbar, Swelling, Tender Psychiatric: Anxiety Affect: Anxious Speech Pattern: Clear, Appropriate - Assessment/Plan (1) Cellulitis of right lower leg Status: Acute Plan: ADMIT. ADMISSION LABS CBC CMP BC. XRAY RLE FOOT AND ANKLE. IV HYDRATION, PAIN CONTROL, IV TEFLARO. CXR ON ADMISSION, RESP CONSULT TO RESUME HOME DUO NEBS. VERIFY HOME MEDICAION (2) Arthritis Status: Chronic (3) COPD (chronic obstructive pulmonary disease) Status: Chronic (4) Hypertension Status: Chronic (5) LORENA (generalized anxiety disorder) Status: Acute - Allergies Allergies/Adverse Reactions: Allergies Allergy/AdvReac Type Severity Reaction Status Date / Time codeine Allergy Verified 11/12/18 08:45 levofloxacin Allergy Verified 11/12/18 08:45 Penicillins Allergy Verified 11/12/18 08:45 Sulfa (Sulfonamide Allergy Verified 11/12/18 08:45 Antibiotics) [SULFA]
[2019-02-09 18:34] LABS: ALANINE AMINOTRANSFERASE 24 Units/L (12-78); ALBUMIN 3.8 g/dL (3.4-5.0); ALKALINE PHOSPHATASE 88 Units/L (46-116); ASPARTATE AMINO TRANSFERASE 20 Units/L (15-37); BLOOD UREA NITROGEN 27 mg/dL (7-18); CALCIUM 9.6 mg/dL (8.5-10.1); CARBON DIOXIDE 28.3 mmol/L (21-32); CHLORIDE 96 mmol/L (98-107); CREATININE 2.02 mg/dL (0.55-1.02); SODIUM 131 mmol/L (136-145); TOTAL PROTEIN 8.2 g/dL (6.4-8.2); eGFR NON BLACK RACES 25 (>60)
[2019-02-09] MEDS: NS 1000 ML 1,000 ML IV SCH (18:35)
[2019-02-09 19:29] LABS: BILIRUBIN,URINE NEGATIVE (NEGATIVE); BLOOD/HEMOGLOBIN,URINE 1+ (NEGATIVE); GLUCOSE, URINE NEGATIVE (NEGATIVE); KETONES,URINE NEGATIVE (NEGATIVE); LEUKOCYTE ESTERASE ,URINE 1+ (NEGATIVE); NITRITES,URINE NEGATIVE (NEGATIVE); PROTEIN,URINE NEGATIVE (NEGATIVE); UROBILINOGEN,URINE NORMAL (NORMAL)
[2019-02-09 19:30] LABS: APPEARANCE,URINE CLEAR (CLEAR); COLOR,URINE YELLOW (YELLOW)
[2019-02-09 19:38] LABS: BACTERIA,URINE TRACE /HPF (NEGATIVE); RBC,URINE 0-2 /HPF (NONE SEEN); SQUAMOUS EPITHELIAL CELL,UR FEW /HPF (NEGATIVE)
--- NOTE | 2019-02-09 19:49 | RAD ---
HISTORY: Shortness of breath Study: Single view of the chest. Comparison: None. Findings: The cardiomediastinal silhouette is normal. No focal consolidations, pleural effusions or pneumothorax. Calcified pulmonary granulomas. Degenerative dextroscoliosis. Bilateral hyper expansion with coarsening of interstitial markings. IMPRESSION: 1. No acute cardiopulmonary process. 2. Findings of COPD and prior granulomatous disease.. Reported By:
--- NOTE | 2019-02-09 19:58 | RAD ---
HISTORY: Lower extremity swelling Study: 2 views of the right foot. Comparison: None Findings: No acute fracture or dislocation. Joint spaces are well aligned. No significant soft tissue swelling or injury can be seen. IMPRESSION: 1. No acute abnormalities in the right foot. Reported By:
--- NOTE | 2019-02-09 19:58 | RAD ---
HISTORY: Swelling and redness Study: 2 views of the right ankle. Comparison: None Findings: No acute fracture or dislocation. The ankle mortise remains well aligned. No significant soft tissue swelling or injury can be seen. IMPRESSION: 1. No acute abnormalities of the right ankle. Reported By:
[2019-02-09] MEDS ORDERED: PATIENT'S HOME MEDICATION (Eszopiclone [Lunesta] 3 MG) PO SCH (21:00)
[2019-02-09] MEDS: XANAX PO SCH (21:39)
[2019-02-09] MEDS: COLACE CAP 100 MG PO SCH (21:39)
[2019-02-09] MEDS: REQUIP PO SCH (21:39)
[2019-02-09] MEDS: TEFLARO 600 MG in NS 100 ML IV + SPIKE MINIBAG* 100 ML IV SCH ×2 (21:40→21:44)
[2019-02-09] MEDS: LOVENOX INJ 40 MG SYR SC SCH (21:41)
[2019-02-09] MEDS: MILK OF MAGNESIA PO SCH (21:41)
[2019-02-09] MEDS ORDERED: RESTORIL CAP 15 MG PO PRN (21:44)
[2019-02-10 05:30] LABS: BASOPHILS # (AUTO) 0.1 X10^3/uL (0.0-0.1); BASOPHILS % (AUTO) 1.3 % (0.2-1.0); EOSINOPHILS # (AUTO) 0.2 x10^3/uL (0.0-0.2); EOSINOPHILS % (AUTO) 2.7 % (0.9-2.9); HEMATOCRIT 32.5 % (36.0-47.0); HEMOGLOBIN 11.5 g/dL (12.0-16.0); LYMPHOCYTES # (AUTO) 1.9 X10^3/uL (1.3-2.9); LYMPHOCYTES % (AUTO) 31.2 % (21.0-51.0); MEAN CORPUSCULAR HEMOGLOBIN 31.9 pg (27.0-34.0); MEAN CORPUSCULAR HGB CONC 35.3 g/dL (33.0-35.0); MEAN CORPUSCULAR VOLUME 90.4 fL (80.0-100.0); MEAN PLATELET VOLUME 6.6 fL (7.4-11.0); MONOCYTES # (AUTO) 0.5 x10^3/uL (0.3-0.8); MONOCYTES % (AUTO) 7.7 % (0.0-13.0); NEUTROPHILS # (AUTO) 3.5 x10^3/uL (2.2-4.8); NEUTROPHILS % (AUTO) 57.1 % (42.0-75.0); PLATELET COUNT 263 X10^3/uL (150.0-450.0); RED BLOOD COUNT 3.59 X10^6/uL (3.5-5.4); RED CELL DISTRIBUTION WIDTH 14.7 % (11.6-16.5); WHITE BLOOD COUNT 6.1 X10^3/uL (3.6-10.0)
[2019-02-10 05:32] LABS: ALANINE AMINOTRANSFERASE 27 Units/L (12-78); ALBUMIN 3.1 g/dL (3.4-5.0); ALKALINE PHOSPHATASE 86 Units/L (46-116); ASPARTATE AMINO TRANSFERASE 26 Units/L (15-37); BLOOD UREA NITROGEN 23 mg/dL (7-18); CHLORIDE 101 mmol/L (98-107); COR CA(FOR HYPOALB) 9.7 mg/dL (8.5-10.1); CREATININE 1.67 mg/dL (0.55-1.02); SODIUM 137 mmol/L (136-145); eGFR NON BLACK RACES 32 (>60)
[2019-02-10] MEDS: TEFLARO 600 MG in NS 100 ML IV + SPIKE MINIBAG* 100 ML IV SCH ×4 (06:47→21:04)
[2019-02-10] MEDS: REQUIP PO SCH ×2 (08:09→21:05)
[2019-02-10] MEDS: LOVENOX INJ 40 MG SYR SC SCH (08:10)
[2019-02-10] MEDS: XANAX PO SCH (08:11)
[2019-02-10] MEDS: TOPROL XL PO SCH (08:11)
[2019-02-10] MEDS: MILK OF MAGNESIA PO SCH ×3 (08:12→21:04)
[2019-02-10] MEDS: NS 1000 ML 1,000 ML IV SCH ×2 (08:21→21:05)
[2019-02-10] MEDS ORDERED: XANAX PO PRN (10:13)
[2019-02-10] MEDS ORDERED: MAALOX or MYLANTA PO PRN (19:46)
[2019-02-10] MEDS ORDERED: RESTORIL CAP 15 MG PO SCH (21:00)
[2019-02-10] MEDS: COLACE CAP 100 MG PO SCH (21:04)
[2019-02-11 05:31] LABS: BASOPHILS # (AUTO) 0.1 X10^3/uL (0.0-0.1); BASOPHILS % (AUTO) 2.2 % (0.2-1.0); EOSINOPHILS # (AUTO) 0.1 x10^3/uL (0.0-0.2); EOSINOPHILS % (AUTO) 2.6 % (0.9-2.9); HEMATOCRIT 33.8 % (36.0-47.0); HEMOGLOBIN 11.7 g/dL (12.0-16.0); LYMPHOCYTES # (AUTO) 1.6 X10^3/uL (1.3-2.9); LYMPHOCYTES % (AUTO) 29.5 % (21.0-51.0); MEAN CORPUSCULAR HEMOGLOBIN 31.7 pg (27.0-34.0); MEAN CORPUSCULAR HGB CONC 34.7 g/dL (33.0-35.0); MEAN CORPUSCULAR VOLUME 91.3 fL (80.0-100.0); MEAN PLATELET VOLUME 6.6 fL (7.4-11.0); MONOCYTES # (AUTO) 0.6 x10^3/uL (0.3-0.8); MONOCYTES % (AUTO) 10.5 % (0.0-13.0); NEUTROPHILS # (AUTO) 3.1 x10^3/uL (2.2-4.8); NEUTROPHILS % (AUTO) 55.2 % (42.0-75.0); PLATELET COUNT 271 X10^3/uL (150.0-450.0); RED CELL DISTRIBUTION WIDTH 14.7 % (11.6-16.5); WHITE BLOOD COUNT 5.6 X10^3/uL (3.6-10.0)
[2019-02-11 05:47] LABS: ALANINE AMINOTRANSFERASE 28 Units/L (12-78); ALBUMIN 3.2 g/dL (3.4-5.0); ALKALINE PHOSPHATASE 100 Units/L (46-116); ASPARTATE AMINO TRANSFERASE 28 Units/L (15-37); BLOOD UREA NITROGEN 17 mg/dL (7-18); CALCIUM 8.8 mg/dL (8.5-10.1); CARBON DIOXIDE 26.8 mmol/L (21-32); CHLORIDE 103 mmol/L (98-107); COR CA(FOR HYPOALB) 9.4 mg/dL (8.5-10.1); CREATININE 1.31 mg/dL (0.55-1.02); SODIUM 136 mmol/L (136-145); TOTAL PROTEIN 7.4 g/dL (6.4-8.2); eGFR NON BLACK RACES 42 (>60)
[2019-02-11] MEDS: LOVENOX INJ 40 MG SYR SC SCH (08:13)
[2019-02-11] MEDS: TEFLARO 600 MG in NS 100 ML IV + SPIKE MINIBAG* 100 ML IV SCH (08:14)
[2019-02-11] MEDS: TOPROL XL PO SCH (08:14)
[2019-02-11] MEDS: MILK OF MAGNESIA PO SCH (08:14)
[2019-02-11] MEDS: REQUIP PO SCH (08:14)
[2019-02-11] MEDS ORDERED: XANAX PO SCH (09:00)
[2019-02-11 12:13] VITALS: BP 187/77
[2019-02-11] MEDS: NS 1000 ML 1,000 ML IV SCH (12:13)
[2019-02-11] MEDS ORDERED: CLEOCIN PO SCH (14:00)
== END 2019-02-11 13:00 | disposition home or self-care (01) | DRG 603 ==
LOC: MED/SURG 16:01
PROVIDERS: ADMIT Internal Medicine; ATTEND Internal Medicine
DX: L03.115 Cellulitis of right lower limb; J44.9 Chronic obstructive pulmonary disease, unspecified; I11.0 Hypertensive heart disease with heart failure; E87.1 Hypo-osmolality and hyponatremia; I25.10 Atherosclerotic heart disease of native coronary artery without angina pectoris; F41.8 Other specified anxiety disorders; M13.89 Other specified arthritis, multiple sites
CPT/HCPCS: 36415; 71010; 71045; 73610; 73630; 80053; 81001; 84550; 85025; 87040; A4222; J0712; J1650; J7030; J7050

== ENCOUNTER 2019-05-02 17:06 | Observation (INO) ==
[2019-05-02] MEDS ORDERED: ZOFRAN INJ 4 MG VIAL IVP PRN (17:19)
--- NOTE | 2019-05-02 17:56 | DR.H&P ---
H&P - History & Physical for Day of: H&P Date: 05/02/19 - Chief Complaint Chief Complaint: FALL, SEVERE PAIN RIGHT LEG, RIGHT BUTTOCK - History of Present Illness History of Present Illness: 78 WF DIRECT ADMIT FROM DR ESCAMILLA OFFICE AFTER CO ESENTING WITH CO FALL WITH INTRACTABLE LOWER BACK PAIN, RADIATES DOWN RIGHT LEG. PT WAS SEEN AFTER FALL LAST WEEK, PT HAD INJECTION IN OFFICE FOR PAIN. PT STATES SHE DID NOT HAVE ANY RELIEF AFTER SHOT. PT REPORTS SECOND FALL THIS WEEKEND. PT HAS PMH OF OA, LORENA, HTN, CAD, COPD. PT ADMITTED FOR TREATMENT AND EVALUATION OF INTRACTABLE LOWER BACK PAIN AND WEAKNESS IN LEGS. - Past Medical History Past Medical History: Anxiety, Arthritis, Asthma, COPD, Coronary Artery Disease, Hypertension - Past Surgical History Surgical History: Other - Family History Family Medical History: [place], Hypertension - Social History Does patient currently use any type of tobacco product: Yes Have you used tobacco products in the last 12 months: Yes Type of Tobacco Use: Cigarettes Does any household member use tobacco: Yes Alcohol Use: None Drug Use: None Risks, benefits, and alternatives of opioids discussed: Yes Prescription drug monitoring program results: PDMP reviewed and no concerns identified (REVIEWED IN PP OFFICE) - Medications Home Medications: codeine Allergy (Verified 11/12/18 08:45) levofloxacin Allergy (Verified 11/12/18 08:45) Penicillins Allergy (Verified 11/12/18 08:45) Sulfa (Sulfonamide Antibiotics) [SULFA] Allergy (Verified 11/12/18 08:45) - Review of Systems Constitutional: Weakness Eyes: No Symptoms Reported Respiratory: SOB with Excertion Cardiovascular: No Symptoms Reported, Edema (+RIGHT LE) Gastrointestinal: No Symptoms Reported Genitourinary: No Symptoms Reported Musculoskeletal: Back Pain Skin: Bruising Neurological: Weakness - Physical Exam Vital Signs: Blood Pressure [Left Arm] 187/77 Blood Pressure [Right Arm] 138/63 Blood Pressure [Standing] 81/51 Blood Pressure [Sitting] 94/48 Blood Pressure 187/77 Oriented: Normal Eyes: Normal Ear: Normal Nose: Normal Throat: Dry Respiratory: Diminished Throughout Cardiovascular: Tachycardia, Edema : Normal Auscultation: Bowel Sounds: Normal Palpation: Normal Tenderness: Normal Skin: Decreased Turgur Musculoskeletal: Right, Hip, Back:Thoracic, Back:Lumbar, Tender, Motor Deficit Psychiatric: Anxiety Affect: Anxious Speech Pattern: Clear, Appropriate - Assessment/Plan (1) Intractable back pain Status: Acute Plan: ADMIT, PAIN CONTROL. L SPINE SERIES, AM MRI LSPINE R/O ACUTE INJURY, SPINAL STENOSIS. RESP CONSULT FOR COPD MANAGEMENT, PAIN CONTROL. VERIFY HOME MEDICATION, ADMISSION LABS. IV SOLU MEDROL (2) Fall Status: Acute (3) Essential hypertension Status: Acute (4) LORENA (generalized anxiety disorder) Status: Acute (5) COPD (chronic obstructive pulmonary disease) Status: Chronic (6) Hypertension Status: Chronic - Allergies Allergies/Adverse Reactions: Allergies Allergy/AdvReac Type Severity Reaction Status Date / Time codeine Allergy Verified 11/12/18 08:45 levofloxacin Allergy Verified 11/12/18 08:45 Penicillins Allergy Verified 11/12/18 08:45 Sulfa (Sulfonamide Allergy Verified 11/12/18 08:45 Antibiotics) [SULFA]
[2019-05-02] MEDS ORDERED: PROVENTIL NEB TX 0.083% 2.5MG/ 3ML NEB PRN (18:06)
[2019-05-02] MEDS ORDERED: AMBIEN PO PRN (18:29)
[2019-05-02] MEDS: NS 1000 ML 1,000 ML IV SCH (18:34)
[2019-05-02 18:35] LABS: BASOPHILS # (AUTO) 0.1 X10^3/uL (0.0-0.1); BASOPHILS % (AUTO) 1.2 % (0.2-1.0); EOSINOPHILS # (AUTO) 0.2 x10^3/uL (0.0-0.2); EOSINOPHILS % (AUTO) 2.3 % (0.9-2.9); HEMATOCRIT 32.6 % (36.0-47.0); HEMOGLOBIN 11.5 g/dL (12.0-16.0); LYMPHOCYTES # (AUTO) 2.2 X10^3/uL (1.3-2.9); MEAN CORPUSCULAR HEMOGLOBIN 32.6 pg (27.0-34.0); MEAN CORPUSCULAR HGB CONC 35.4 g/dL (33.0-35.0); MONOCYTES # (AUTO) 0.7 x10^3/uL (0.3-0.8); NEUTROPHILS # (AUTO) 4.8 x10^3/uL (2.2-4.8); NEUTROPHILS % (AUTO) 60.5 % (42.0-75.0); PLATELET COUNT 331 X10^3/uL (150.0-450.0); RED BLOOD COUNT 3.54 X10^6/uL (3.5-5.4); RED CELL DISTRIBUTION WIDTH 15.5 % (11.6-16.5)
[2019-05-02 18:46] LABS: ALANINE AMINOTRANSFERASE 15 Units/L (12-78); ALBUMIN 3.4 g/dL (3.4-5.0); ALKALINE PHOSPHATASE 97 Units/L (46-116); ASPARTATE AMINO TRANSFERASE 16 Units/L (15-37); BLOOD UREA NITROGEN 51 mg/dL (7-18); CALCIUM 9.2 mg/dL (8.5-10.1); CARBON DIOXIDE 30.5 mmol/L (21-32); CHLORIDE 93 mmol/L (98-107); CREATININE 1.69 mg/dL (0.55-1.02); SODIUM 129 mmol/L (136-145); TOTAL PROTEIN 7.6 g/dL (6.4-8.2); eGFR NON BLACK RACES 31 (>60)
--- NOTE | 2019-05-02 18:56 | RAD ---
Chest, two view Indication: Cough Comparison: 03/21/2019 Findings: Heart is normal in size. Lungs are hyperinflated with flattening of the hemidiaphragms and stable coarsened interstitial markings, compatible with COPD. Bilateral calcified granulomas noted. No acute alveolar infiltrate or significant effusion is identified. No pneumothorax. Impression: Stable findings of COPD without acute cardiopulmonary abnormality. Reported By:
[2019-05-02] MEDS: PROTONIX INJ 40 MG VIAL IVP SCH (19:09)
[2019-05-02] MEDS: SOLU-Medrol 40 MG VIAL IVP SCH ×2 (19:10→22:01)
[2019-05-02 19:54] VITALS: BMI 16.6
[2019-05-02] MEDS: COLACE CAP 100 MG PO SCH (20:27)
[2019-05-02] MEDS: PERCOCET TAB 5/325 MG PO PRN (20:34)
[2019-05-02] MEDS ORDERED: STERILE WATER IRRIGATION IR ONE ×2 (20:36→20:43)
[2019-05-02] MEDS: PULMICORT NEB TX 0.5 MG NEB SCH (20:45)
[2019-05-02] MEDS: VOLTAREN 1 % GEL MULTI DOSE TUBE TOP SCH (21:03)
[2019-05-02 21:04] LABS: BILIRUBIN,URINE NEGATIVE (NEGATIVE); BLOOD/HEMOGLOBIN,URINE 2+ (NEGATIVE); GLUCOSE, URINE NEGATIVE (NEGATIVE); KETONES,URINE NEGATIVE (NEGATIVE); LEUKOCYTE ESTERASE ,URINE 1+ (NEGATIVE); NITRITES,URINE NEGATIVE (NEGATIVE); PROTEIN,URINE 1+ (NEGATIVE); UROBILINOGEN,URINE NORMAL (NORMAL)
[2019-05-02 21:11] LABS: AMORPHOUS SEDIMENT,UR TRACE /HPF (NEGATIVE); APPEARANCE,URINE SLIGHTLY HAZY (CLEAR); BACTERIA,URINE TRACE /HPF (NEGATIVE); COLOR,URINE YELLOW (YELLOW); SQUAMOUS EPITHELIAL CELL,UR RARE /HPF (NEGATIVE)
--- NOTE | 2019-05-02 21:40 | RAD ---
HISTORY: Back pain Study: Lumbar spine series Comparison: None Findings: There is moderate disc space narrowing throughout with minimal osteophytes throughout. No fracture or subluxation is seen. There is mild scoliosis. The pedicles are intact. There are moderate sclerotic changes of the facets throughout with no pars defects. The vertebral body height is well maintained throughout IMPRESSION: Moderate degenerative disc changes throughout and mild scoliosis with no acute abnormality seen. Moderate osteoarthritic changes of the facets throughout with no pars defects. Reported By:
[2019-05-03] MEDS: MORPHINE SULFATE INJ 2 MG INJ IVP PRN ×2 (00:29→10:52)
[2019-05-03] MEDS: SOLU-Medrol 40 MG VIAL IVP SCH ×3 (05:01→22:00)
[2019-05-03 05:04] LABS: BASOPHILS % (AUTO) 0.5 % (0.2-1.0); HEMATOCRIT 30.8 % (36.0-47.0); HEMOGLOBIN 10.7 g/dL (12.0-16.0); LYMPHOCYTES % (AUTO) 17.7 % (21.0-51.0); MEAN CORPUSCULAR HEMOGLOBIN 32.4 pg (27.0-34.0); MEAN CORPUSCULAR HGB CONC 34.7 g/dL (33.0-35.0); MEAN CORPUSCULAR VOLUME 93.3 fL (80.0-100.0); MEAN PLATELET VOLUME 6.5 fL (7.4-11.0); MONOCYTES # (AUTO) 0.1 x10^3/uL (0.3-0.8); NEUTROPHILS # (AUTO) 4.5 x10^3/uL (2.2-4.8); NEUTROPHILS % (AUTO) 80.8 % (42.0-75.0); PLATELET COUNT 289 X10^3/uL (150.0-450.0); RED CELL DISTRIBUTION WIDTH 15.2 % (11.6-16.5); WHITE BLOOD COUNT 5.6 X10^3/uL (3.6-10.0)
[2019-05-03] MEDS: PERCOCET TAB 5/325 MG PO PRN ×2 (05:13→20:21)
[2019-05-03 05:15] LABS: ALBUMIN 2.8 g/dL (3.4-5.0); CALCIUM 8.3 mg/dL (8.5-10.1); CARBON DIOXIDE 28.3 mmol/L (21-32); COR CA(FOR HYPOALB) 9.3 mg/dL (8.5-10.1); CREATININE 1.5 mg/dL (0.55-1.02); TOTAL PROTEIN 6.7 g/dL (6.4-8.2)
[2019-05-03] MEDS: PULMICORT NEB TX 0.5 MG NEB SCH ×2 (08:41→20:17)
[2019-05-03] MEDS ORDERED: XANAX PO ONE (09:09)
[2019-05-03] MEDS: MOBIC TAB 15 MG PO SCH (09:22)
[2019-05-03] MEDS: VOLTAREN 1 % GEL MULTI DOSE TUBE TOP SCH ×4 (09:24→20:20)
[2019-05-03] MEDS: TOPROL XL PO SCH (10:46)
[2019-05-03] MEDS: PROTONIX INJ 40 MG VIAL IVP SCH (10:46)
--- NOTE | 2019-05-03 12:03 | MRI ---
History: Back pain Exam: MRI lumbar spine without contrast Comparison: None Technique: Routine multiplanar multisequence imaging was performed through the lumbar spine without contrast Findings: There is moderate disc space narrowing throughout with diffuse moderate disc desiccation. No fracture or subluxation is seen. There is minimal subluxation of L3 on L4. No fracture is seen. There are moderate endplate degenerative changes at L2-3. The conus is normal. There is a diffuse moderate disc bulge at L2-3 causing moderate dural sac effacement and mild neuroforaminal narrowing . There is a small central disc bulge at L3-4 which along with the subluxation is causing moderate dural sac effacement and mild neuroforaminal narrowing . There are small central disc bulges at L4-5 and L5-S1. There are moderate hypertrophic changes of the facets throughout with ligament flavum hypertrophy causing diffuse moderate spinal stenosis which is most severe at L3-4 . There are multiple cystic masses in both kidneys which are only partially visualized. The paravertebral soft tissues are normal. IMPRESSION: Moderate multilevel degenerative disc disease and mild scoliosis with no acute abnormality seen. Minimal subluxation at L3-4 which is appears degenerative in etiology with no pars defects. Moderate central disc bulge at L2-3 . Small central disc bulge at L3-4 which along with the subluxation is causing moderate dural sac effacement. Moderate osteoarthritic changes of the facets throughout causing diffuse moderate spinal stenosis which is most severe at L3-4. Multiple cystic masses in both kidneys which are only partially visualized. Suggest ultrasound correlation. Reported By:
[2019-05-03] MEDS ORDERED: PROVENTIL NEB TX 0.083% 2.5MG/ 3ML NEB PRN (14:00)
[2019-05-03] MEDS ORDERED: PHARMACY CONSULT - DOSE _____ XX SCH (17:00)
[2019-05-03] MEDS: NS 1000 ML 1,000 ML IV SCH ×2 (18:26→20:21)
[2019-05-03] MEDS: COLACE CAP 100 MG PO SCH (20:20)
[2019-05-04] MEDS: MORPHINE SULFATE INJ 2 MG INJ IVP PRN (00:03)
[2019-05-04] MEDS: NS 1000 ML 1,000 ML IV SCH (03:03)
[2019-05-04 05:20] LABS: BASOPHILS # (AUTO) 0.1 X10^3/uL (0.0-0.1); BASOPHILS % (AUTO) 0.5 % (0.2-1.0); HEMATOCRIT 32.6 % (36.0-47.0); HEMOGLOBIN 11.5 g/dL (12.0-16.0); LYMPHOCYTES # (AUTO) 1.3 X10^3/uL (1.3-2.9); LYMPHOCYTES % (AUTO) 12.3 % (21.0-51.0); MEAN CORPUSCULAR HEMOGLOBIN 32.9 pg (27.0-34.0); MEAN CORPUSCULAR HGB CONC 35.4 g/dL (33.0-35.0); MEAN CORPUSCULAR VOLUME 92.9 fL (80.0-100.0); MEAN PLATELET VOLUME 6.3 fL (7.4-11.0); MONOCYTES # (AUTO) 0.4 x10^3/uL (0.3-0.8); MONOCYTES % (AUTO) 3.4 % (0.0-13.0); NEUTROPHILS # (AUTO) 9.2 x10^3/uL (2.2-4.8); NEUTROPHILS % (AUTO) 83.8 % (42.0-75.0); PLATELET COUNT 300 X10^3/uL (150.0-450.0); RED BLOOD COUNT 3.51 X10^6/uL (3.5-5.4); RED CELL DISTRIBUTION WIDTH 15.1 % (11.6-16.5); WHITE BLOOD COUNT 10.9 X10^3/uL (3.6-10.0)
[2019-05-04 05:31] LABS: ALANINE AMINOTRANSFERASE 17 Units/L (12-78); ALBUMIN 3.3 g/dL (3.4-5.0); ALKALINE PHOSPHATASE 97 Units/L (46-116); ASPARTATE AMINO TRANSFERASE 15 Units/L (15-37); BLOOD UREA NITROGEN 32 mg/dL (7-18); CALCIUM 8.3 mg/dL (8.5-10.1); CARBON DIOXIDE 26.8 mmol/L (21-32); CHLORIDE 98 mmol/L (98-107); COR CA(FOR HYPOALB) 8.9 mg/dL (8.5-10.1); COR NA(FOR HYPERGLY) 133 mmol/L (136-145); CREATININE 1.12 mg/dL (0.55-1.02); SODIUM 132 mmol/L (136-145); TOTAL PROTEIN 7.6 g/dL (6.4-8.2); eGFR NON BLACK RACES 50 (>60)
[2019-05-04] MEDS: SOLU-Medrol 40 MG VIAL IVP SCH (05:57)
[2019-05-04] MEDS: PERCOCET TAB 5/325 MG PO PRN (06:00)
[2019-05-04] MEDS ORDERED: TORADOL 30 MG VIAL IVP ONE (08:08)
[2019-05-04] MEDS: MOBIC TAB 15 MG PO SCH (08:53)
[2019-05-04] MEDS: TOPROL XL PO SCH (08:56)
[2019-05-04] MEDS ORDERED: REQUIP PO SCH (09:00)
[2019-05-04] MEDS ORDERED: LOVENOX INJ 30 MG SYR SC SCH (09:00)
[2019-05-04] MEDS: VOLTAREN 1 % GEL MULTI DOSE TUBE TOP SCH (09:07)
[2019-05-04] MEDS: PROTONIX INJ 40 MG VIAL IVP SCH (09:08)
[2019-05-04] MEDS: PULMICORT NEB TX 0.5 MG NEB SCH (09:42)
[2019-05-04 12:31] VITALS: BP 181/79
== END 2019-05-04 11:00 | disposition home or self-care (01) ==
LOC: MED/SURG
PROVIDERS: ADMIT Internal Medicine; ATTEND Internal Medicine
DX: I10 Essential (primary) hypertension; M54.40 Lumbago with sciatica, unspecified side; F41.8 Other specified anxiety disorders; I25.10 Atherosclerotic heart disease of native coronary artery without angina pectoris; W18.39XA Other fall on same level, initial encounter; R26.89 Other abnormalities of gait and mobility; J44.9 Chronic obstructive pulmonary disease, unspecified
CPT/HCPCS: 36415; 71020; 71046; 72110; 72148; 80053; 81001; 85025; 94640; 96367; 96372; 96374; 97162; 97165; A4217; A4222; C9113; G0378; J1650; J1885; J2270; J2920; J7030; J7613; J7626

== ENCOUNTER 2021-12-31 14:37 | Observation (INO) ==
--- NOTE | 2021-12-31 16:22 | CT ---
HISTORY: [Altered mental status]Noncontrast head CT examination.Comparison: Head CT examination dated November 26, 2021.Technique:Multiple axial images of the brain were obtained from the skull base to the vertex without administration of IV contrast.Findings: There is moderate sulcal and cisternal prominence as well as atherosclerotic change in the proximal intracranial carotid and vertebral arteries, which is not out of proportion to the patient's stated age. There is diffuse CT density alteration seen in the periventricular white matter of the high and mid-convexity, which is likely in the setting of small vessel disease and not out of proportion to the patient's stated age. There is [mild bilateral ex vacuo] ventricular dilatation without evidence for hydrocephalus or herniation syndrome. No midline shift is evident. No acute intraparenchymal hemorrhage or mass can be identified. If there remains a strong concern for any intra-cranial neoplasm, then follow-up with CT or MR imaging of the brain would be more sensitive to exclude any intra-cranial mass lesion. No extra-axial fluid collections are seen. No alteration in the attenuation of the brain parenchyma can be identified to suggest acute or subacute ischemic change. However, if clinical symptoms are concerning for an acute CVA, then follow-up MRI with DWI sequencing is recommended. The extracranial structures [are unremarkable]. The sinuses and mastoids are relatively clear on this examination.IMPRESSION:1. No acute intracranial changes or acute bleed identified.2. Chronic appearing white matter microvascular disease.Electronically signed by: GUNNER BYRD III (December 31, 2021 16:20:33)
[2021-12-31 16:28] LABS: BASOPHILS # (AUTO) 0.1 X10^3/uL (0.0-0.1); BASOPHILS % (AUTO) 1.4 % (0.2-1.0); EOSINOPHILS # (AUTO) 0.1 x10^3/uL (0.0-0.2); EOSINOPHILS % (AUTO) 1.6 % (0.9-2.9); HEMATOCRIT 35.1 % (36.0-47.0); HEMOGLOBIN 12.2 g/dL (12.0-16.0); LYMPHOCYTES # (AUTO) 1.4 X10^3/uL (1.3-2.9); LYMPHOCYTES % (AUTO) 18.5 % (21.0-51.0); MEAN CORPUSCULAR HEMOGLOBIN 30.9 pg (27.0-34.0); MEAN CORPUSCULAR HGB CONC 34.9 g/dL (33.0-35.0); MEAN CORPUSCULAR VOLUME 88.7 fL (80.0-100.0); MEAN PLATELET VOLUME 6.7 fL (7.4-11.0); MONOCYTES # (AUTO) 0.7 x10^3/uL (0.3-0.8); MONOCYTES % (AUTO) 9.4 % (0.0-13.0); NEUTROPHILS # (AUTO) 5.3 x10^3/uL (2.2-4.8); NEUTROPHILS % (AUTO) 69.1 % (42.0-75.0); RED BLOOD COUNT 3.96 X10^6/uL (3.5-5.4); RED CELL DISTRIBUTION WIDTH 14.5 % (11.6-16.5); WHITE BLOOD COUNT 7.7 X10^3/uL (3.6-10.0)
--- NOTE | 2021-12-31 16:34 | RAD ---
EXAM: CHEST X-RAYHISTORY: Syncope.TECHNIQUE: AP CXR.COMPARISON: CXR dated February 22, 2020.FINDINGS:There is severe aortic atherosclerosis. The heart size and mediastinum are within normal limits. There is lung parenchymal hyperinflation and hyperlucency in keeping with COPD/emphysema. There are multiple stable clustered calcified granulomas in the right lower lung field in keeping with chronic sequela of prior granulomatous disease. There is no acute parenchymal infiltrate, pleural effusion, or pneumothorax seen. The visualized bony structures are within normal limits.IMPRESSION:1. No evidence for acute cardiopulmonary disease seen.2. Stable severe COPD/emphysema.3. Stable clustered calcified granulomas in the right lower lung field in keeping with chronic sequela of prior granulomatous disease.4. No significant interval change seen.Electronically signed by: Lukasz Bah (December 31, 2021 16:33:19)
[2021-12-31] MEDS: NS 1,000 ML IV 1,000 ML IV SCH (16:40)
[2021-12-31 16:50] LABS: ALANINE AMINOTRANSFERASE 15 Units/L (12-78); ALBUMIN 3.4 g/dL (3.4-5.0); ALKALINE PHOSPHATASE 110 Units/L (46-116); ASPARTATE AMINO TRANSFERASE 17 Units/L (15-37); BLOOD UREA NITROGEN 47 mg/dL (7-18); CALCIUM 9.1 mg/dL (8.5-10.1); CARBON DIOXIDE 29.5 mmol/L (21-32); CHLORIDE 94 mmol/L (98-107); CKMB % 2.6 % (<4); CREATINE KINASE 58 Units/L (26-192); CREATINE KINASE MB 1.5 ng/mL (0-4.0); CREATININE 1.98 mg/dL (0.55-1.02); MAGNESIUM 2.1 mg/dL (1.7-2.9); SODIUM 131 mmol/L (136-145); TOTAL PROTEIN 7.4 g/dL (6.4-8.2); eGFR NON BLACK RACES 26 (>60)
[2021-12-31] MEDS ORDERED: ULTRAM PO PRN (18:03)
[2021-12-31] MEDS ORDERED: ZOFRAN INJ 4 MG VIAL IVP PRN (18:05)
--- NOTE | 2021-12-31 18:15 | DR.H&P ---
H&P - History & Physical for Day of: H&P Date: 12/31/21 - Chief Complaint Chief Complaint: weakness, dizziness, "passed out" - History of Present Illness History of Present Illness: PT IS 81 WF DIRECT ADMIT FROM DR FAULKNER OFFICE WITH INTRACTABLE DIZZINESS. PT REPORTS SHE FELL OFF TOILET AND HIT HER HEAD. PT STATES SHE PASSED OUT. PT REPORTS BP HAS BEEN RUNNING VERY LOW. PT IS CURRENTLY HOLDING BP MEDICATION WITHOUT IMPROVEMENT. PT HAS PMH OF COPD, CAD, HTN, OA. PT ADMITTED FOR TREATMENT OF ACUTE ILLNESS. 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, Other - Family History Family Medical History: [place], Coronary Artery Disease, Hypertension - Social History Does patient currently use any type of tobacco product: Yes Have you used tobacco products in the last 12 months: Yes Type of Tobacco Use: Cigarettes How many years tobacco product used: 60 Alcohol Use: None Drug Use: None - Medications Home Medications: codeine Allergy (Verified 11/12/18 08:45) levofloxacin Allergy (Verified 11/12/18 08:45) Penicillins Allergy (Verified 11/12/18 08:45) Sulfa (Sulfonamide Antibiotics) [SULFA] Allergy (Verified 11/12/18 08:45) CONTINUE taking the following medications fluticasone propion-salmeterol [Advair Diskus] 1 inh INHALATION BID 12/31/21 [History] pantoprazole 40 mg PO DAILY 12/31/21 [History] - Review of Systems Constitutional: Weakness Eyes: No Symptoms Reported ENT: No Symptoms Reported Respiratory: Cough, Shortness of Breath, SOB with Excertion, Sputum, Wheezing Cardiovascular: Light Headedness Gastrointestinal: Nausea Genitourinary: No Symptoms Reported Musculoskeletal: Back Pain Skin: Wound (SKIN TEAR LEFT FA) Neurological: Weakness, Other (SYNCOPE) - Physical Exam Vital Signs: Blood Pressure [Left Arm] 187/77 Blood Pressure [Right Arm] 181/79 Oriented: Normal Eyes: Blurred Vision (RIGHT EYE VISION IMPAIRMENT) Ear: Normal Nose: Normal Throat: Normal Respiratory: Diminished Throughout Cardiovascular: Normal : Normal Auscultation: Bowel Sounds: Normal Palpation: Normal Tenderness: Normal Skin: Decreased Turgur, Wound (V SHAPED SKIN TEAR TO LEFT FA) Musculoskeletal: Back:Thoracic, Back:Lumbar, Motor Deficit Psychiatric: Anxiety Affect: Anxious Speech Pattern: Clear, Appropriate - Assessment/Plan (1) Syncope Status: Acute Plan: ADMIT, CT HEAD ON ADMISSION. CXR ON ADMISSION, VERIFY HOME MEDICATION. HOLD BP MEDICATION UNTIL RESOLVED HYPOTENSION. GENTLE IV HYDRATION, STRICT I&OS. BP AND CARDIAC MONITORING. IV ROCEPHIN, SOLU MEDROL AND RESP CONSULTATION FOR COPD WITH AM (2) Dehydration Status: Acute (3) COPD (chronic obstructive pulmonary disease) Status: Chronic (4) LORENA (generalized anxiety disorder) Status: Acute (5) Orthostatic hypotension Status: Acute - Allergies Allergies/Adverse Reactions: Allergies Allergy/AdvReac Type Severity Reaction Status Date / Time codeine Allergy Verified 11/12/18 08:45 levofloxacin Allergy Verified 11/12/18 08:45 Penicillins Allergy Verified 11/12/18 08:45 Sulfa (Sulfonamide Allergy Verified 11/12/18 08:45 Antibiotics) [SULFA]
[2021-12-31] MEDS: ROCEPHIN VIAL 1 GRAM 1 G in NS 100 ML IV 100 ML IV SCH (19:30)
[2021-12-31] MEDS ORDERED: PATIENT'S HOME MEDICATION PO PRN (20:01)
[2021-12-31] MEDS ORDERED: AMBIEN PO SCH (21:00)
[2021-12-31] MEDS ORDERED: PROVENTIL NEB TX 0.083% 2.5MG/ 3ML NEB SCH (21:00)
[2021-12-31] MEDS ORDERED: PULMICORT NEB TX 0.5 MG NEB SCH (21:00)
[2021-12-31] MEDS: XANAX PO SCH (21:23)
[2021-12-31] MEDS: REQUIP PO SCH (21:23)
[2021-12-31] MEDS: SOLU-Medrol 40 MG VIAL IVP SCH (21:24)
[2021-12-31 21:43] LABS: BILIRUBIN,URINE NEGATIVE (NEGATIVE); BLOOD/HEMOGLOBIN,URINE NEGATIVE (NEGATIVE); GLUCOSE, URINE NEGATIVE (NEGATIVE); KETONES,URINE NEGATIVE (NEGATIVE); LEUKOCYTE ESTERASE ,URINE 1+ (NEGATIVE); NITRITES,URINE NEGATIVE (NEGATIVE); PH,URINE 6.5 (5.0 - 8.0); PROTEIN,URINE 2+ (NEGATIVE); UROBILINOGEN,URINE NORMAL (NORMAL)
[2021-12-31 22:05] LABS: APPEARANCE,URINE CLEAR (CLEAR); BACTERIA,URINE TRACE /HPF (NEGATIVE); COLOR,URINE YELLOW (YELLOW); HYALINE CASTS, URINE FEW /LPF (NEGATIVE); RBC,URINE 0-2 /HPF (0-3); SQUAMOUS EPITHELIAL CELL,UR MANY /HPF (NEGATIVE)
[2022-01-01] MEDS: SOLU-Medrol 40 MG VIAL IVP SCH (05:02)
[2022-01-01] MEDS: REQUIP PO SCH (05:02)
[2022-01-01] MEDS: NS 1,000 ML IV 1,000 ML IV SCH (05:02)
[2022-01-01 05:45] LABS: HEMATOCRIT 33.7 % (36.0-47.0); HEMOGLOBIN 11.8 g/dL (12.0-16.0); LYMPHOCYTES # (AUTO) 0.9 X10^3/uL (1.3-2.9); MEAN CORPUSCULAR HEMOGLOBIN 30.9 pg (27.0-34.0); MEAN CORPUSCULAR HGB CONC 35.2 g/dL (33.0-35.0); MEAN CORPUSCULAR VOLUME 87.9 fL (80.0-100.0); MEAN PLATELET VOLUME 7.1 fL (7.4-11.0); MONOCYTES # (AUTO) 0.1 x10^3/uL (0.3-0.8); MONOCYTES % (AUTO) 1.3 % (0.0-13.0); NEUTROPHILS # (AUTO) 3.5 x10^3/uL (2.2-4.8); NEUTROPHILS % (AUTO) 77.7 % (42.0-75.0); RED BLOOD COUNT 3.83 X10^6/uL (3.5-5.4); RED CELL DISTRIBUTION WIDTH 14.3 % (11.6-16.5); WHITE BLOOD COUNT 4.5 X10^3/uL (3.6-10.0)
[2022-01-01 06:02] LABS: ALBUMIN 2.9 g/dL (3.4-5.0); CALCIUM 8.7 mg/dL (8.5-10.1); CARBON DIOXIDE 26.7 mmol/L (21-32); COR CA(FOR HYPOALB) 9.6 mg/dL (8.5-10.1); CREATININE 1.41 mg/dL (0.55-1.02); TOTAL PROTEIN 6.7 g/dL (6.4-8.2)
[2022-01-01] MEDS: XANAX PO SCH (09:00)
[2022-01-01] MEDS ORDERED: ASPIRIN EC 81 MG PO SCH (09:00)
[2022-01-01] MEDS: ROCEPHIN VIAL 1 GRAM 1 G in NS 100 ML IV 100 ML IV SCH (09:00)
[2022-01-01] MEDS ORDERED: PROTONIX TAB 40 MG PO SCH (09:00)
[2022-01-01 11:35] VITALS: BMI 17.7
[2022-01-01 13:44] VITALS: BP 134/65
--- NOTE | 2022-01-03 14:02 | US ---
HISTORYHypertension. Renal insufficiency. Syncope.STUDYRENAL USCOMPARISONCT aortogram runoff 10/27/2019TECHNIQUEThirty-seven images made by the web art director. Moses scale and color-flow images of the kidneys and lower pelvis were obtained.FINDINGSRight kidney: 8.5 x 4.0 cmLeft kidney: 9.0 x 3.5 cmThe cortex is normal in thickness and echogenicity. There is no solid mass. There might be a very mild right hydronephrosis. No significant left hydronephrosis. Simple cysts in the right kidney are present, 1 measuring 2.1 cm in the upper pole and 1 measuring 2.6 cm in the lower pole. Simple cysts are present in the left kidney, 1 measuring 5.6 cm in the upper pole and 1 measuring 2.2 cm in the lower pole.Right resistive index measures 0.5. Left resistive index measures 0.7.The urinary bladder is normally distended with no wall thickening.IMPRESSION1. Possible mild right hydronephrosis2. Bilateral renal cystsElectronically signed by: Jackson Antony (January 03, 2022 14:01:39)
--- NOTE | 2022-01-16 22:08 | PCM.DCPLAN ---
Discharge Plan - Discharge Plan Hospital Course: Admit date 12/31/21 Discharge date 01/01/22 DOS 01/01/22 Admit diagnosis (1) Syncope (2) Dehydration (3) VASOVAGIL EPISODE (4) LORENA (generalized anxiety disorder) (5) Orthostatic hypotension Discharge diagnosis SAME Hospital Course PT IS 81 WF DIRECT ADMIT FROM DR FAULKNER OFFICE WITH INTRACTABLE DIZZINESS. PT REPORTS SHE FELL OFF TOILET AND HIT HER HEAD. PT STATES SHE PASSED OUT. PT REPORTS BP HAS BEEN RUNNING VERY LOW. PT IS CURRENTLY HOLDING BP MEDICATION WITHOUT IMPROVEMENT. PT HAS PMH OF COPD, CAD, HTN, OA. PT ADMITTED FOR TREATMENT OF ACUTE ILLNESS. PATIENT ALSO HAS A HISTORY OF FREQUENT SYNCOPAL EPISODES AND FOLLOW UP WITH A NEUROLOGIST AND LITERARY WRITER OUTPATIENT FOR SYNCOPE. LABS RETURNED TO BASELINE FOR PATIENT. IMAGING REVEALED NO ACUTE FINDINGS; ALL CHRONIC FOR PATIENT. PATIENT DENIED DYSPNEA AND/OR CHEST PAIN. STATES DIZZINESS AND SYNCOPE RETURNED TO NORMAL AFTER ADMISSION. PATIENT STRONGLY REQUESTED DISCHARGE HOME. PATIENT WAS TREATED WITH IV HYDRATION, IV ABX AND STEROIDS, DUO NEBS. CARDIAC EVAL NEGATIVE FOR ACUTE FINDINGS. COPD EXACERBATION RULED OUT. PATIENT WAS DISCHARGED HOME AND INSTRUCTED TO FOLLOW UP IN 1 WEEK WITH PCP AND SPECIALIST. SEE DC MED REC FOR MED CHANGES. Discharge time spent >35 mins. Disposition: 01 HOME, SELF-CARE Condition: Stable Health Concerns: Post Hospitalization: new medications and changes needed to prevent readmission or further decline. Pt educated and given instructions on all concerns. Care Plan Goals: Problem: Activity Intolerance Goal: Increased tolerance to activity Instructions: Follow provided instructions. Follow up with primary physician as directed. Contact primary care physician or report to the closest Emergency Room if condition worsens. Plan of Treatment: Continue with present treatment and follow up plan. Pt is to keep follow up appointment as instructed and take medications as ordered. Prescriptions: Continued alprazolam 0.5 mg tablet 0.5 mg PO DAILY aspirin 81 mg tablet,delayed release (DR/EC) 81 mg PO DAILY cyclobenzaprine 10 mg Tablet 10 mg PO TID PRN eszopiclone 3 mg tablet 3 mg PO HS fluticasone propion-salmeterol 250-50 mcg/dose blister with device 2 puff inhalation BID fluticasone propion-salmeterol [Advair Diskus] 250-50 mcg/dose blister with device 1 inh inhalation BID lisinopril-hydrochlorothiazide 20-25 mg tablet 1 tab PO DAILY meloxicam 7.5 mg tablet 7.5 mg PO BID omeprazole 40 mg capsule,delayed release(DR/EC) 40 mg PO DAILY pantoprazole 40 mg tablet,delayed release (DR/EC) 40 mg PO DAILY ProAir RespiClick 90 mcg/actuation Aerosol Powdr Breath Activated 90 mcg inhalation Q8H PRN ropinirole 2 mg tablet 2 mg PO TID tiotropium bromide 2.5 mcg/actuation mist 1 inh inhalation DAILY tramadol [Ultram] 50 mg Tablet 50 mg PO Q6H PRN - Orders to Discharge Patient Discharge Orders: Discharge (Routine); Ordered 01/01/22 Ordered By: Ryanne Connor - Follow ups/Referrals Follow ups/Referrals: CATARINO HOWARD [Primary Care Provider] - 01/08/22 3:00 pm - Instructions Instructions: Fall Prevention in the Home, Adult, [id number], Steps to Quit Smoking, Gwlu-cy-Jfgn, Chronic Obstructive Pulmonary Disease, [id number]-[id number], Near-Syncope, Lhgh-pv-Raef, Hypertension, Adult, [id number]-[id number], Dizziness, Ycpe-kq-Pofz, Syncope, [id number]-zc-[id number] Forms: Precautions for [facility], [place] [facility], Patient Portal, Social Distancing Print Language: MONGOLIAN - Patient Education Addl Reference Links: Syncope [email or web address]
== END 2022-01-01 14:25 | disposition home or self-care (01) ==
LOC: MED/SURG
PROVIDERS: ADMIT Internal Medicine; ATTEND Internal Medicine
DX: Z79.899 Other long term (current) drug therapy; R55 Syncope and collapse; R90.82 White matter disease, unspecified; E86.0 Dehydration; J44.9 Chronic obstructive pulmonary disease, unspecified; F41.8 Other specified anxiety disorders; I25.10 Atherosclerotic heart disease of native coronary artery without angina pectoris; R06.02 Shortness of breath; I10 Essential (primary) hypertension; N28.1 Cyst of kidney, acquired; R94.31 Abnormal electrocardiogram [ECG] [EKG]

== ENCOUNTER 2022-07-14 11:24 | Inpatient (IN) ==
--- NOTE | 2022-07-14 11:56 | ED.ABDFE ---
HPI Time Seen Time Seen by Provider: 07/14/22 11:56 PCP Primary Care Physician: Loretta Rock MANAGER [employer] HPI Comment HPI Comment: PATIENT IS 82YR OLD FEMALE IN ER WITH ABDOMINAL PAIN TIME 2 DAYS. WORSE TODAY. DENIES FEVER, VOMITINGAND DISRRHEA. MAY BE CONSTIPATED. TOOK LAXITIVE WITHOUT RESPONSE. Complaint Doctors Chief Complaint Comments: ABDOMINAL PAIN TIMES 2 DAYS. Chief Complaint:: Abdominal pain since thursday morning. Self Treatment fo Chief Complaint: Pt took a laxative without resutls. COVID-19 Coronavirus risk:travel/contact w/high risk person: No Has patient experienced Coronavirus symptoms: No Reviewed Nurses Notes Review: Yes Source History Provided: Patient Mode of arrival Mode of Arrival: Wheelchair Timing Onset of Chief Complaint: 07/12/22 Duration Since Onset: Constant Duration: Days Severity Severity: Severe Quality Quality: Cramping Context History of: None Modifying factors Worsening Factors: Position Improving Factors: Lying Still Associated signs and symptoms Associated Signs and Symptoms: Nausea PMH PMH Past Medical History: No Past Medical History: Anemia, Anxiety, Arthritis, COPD, CVA, GERD, Headaches, Hypertension and Sleep Apnea Past Surgical History: No Surgical History: PORTER SAMPLE CASE Surgery and Other Past Surgical History Comment: back surgery, breast tissue removal under arms bilateral. Family History History of Family Medical Conditions: Yes Family Medical History: Diabetes Mellitus, [place], Heart Failure, Sudden Cardiac and Hypertension Social History Does patient currently use any type of tobacco product: Yes Have you used tobacco products in the last 12 months: Yes Type of Tobacco Use: Cigarettes How many years tobacco product used: 47 Does any household member use tobacco: Yes Alcohol Use: None Do you use any recreational Drugs:: No Lives With: Spouse Lives Where: Home Travel Risk Coronavirus risk:travel/contact w/high risk person: No Has patient experienced Coronavirus symptoms: No Infectious screening In the last 2 months have you had wt loss of >10#?: NO Have you had fever, night sweats or hemotysis?: No Have you traveled outside the country in the last 6 months?: No Isolation: Standard ROS Review of Systems Constitutional: Weakness and Fatigue; negative Fever Eyes: No Symptoms Reported ENTM: No Symptoms Reported Respiratoy: No Symptoms Reported; negative Moist Cough, Short of Breath or Wheezing Cardiovascular: No Symptoms Reported; negative Chest Pain or Edema Gastrointestinal/Abdominal: Abdominal Pain, Constipation and Nausea; negative Diarrhea or Vomiting Genitourinary: No Symptoms Reported; negative Dysuria, Frequency or Hematuria Neurological: No Symptoms Reported and Weakness; negative Headache or Dizziness Musculoskeletal: No Symptoms Reported; negative Muscle Pain Integumentary: No Symptoms Reported and Dryness; negative Rash or Juandice Hematologic/Lymphatic: No Symptoms Reported and Easy Bruising Endocrine: Increased Thirst; negative Increased Urine Psychiatric: No Symptoms Reported All Other Systems: Reviewed and Negative PE Vital Signs Vitals: Temperature 98.3 F Pulse Rate 77 Respiratory Rate 20 Blood Pressure [Left Arm] 134/65 Blood Pressure [Right Arm] 181/79 Blood Pressure 123/56 O2 Sat by Pulse Oximetry 96 General Limitations: No Limitations Head Head Exam: Normal Inspection Eyes Eye exam: Normal Appearance ENT ENT Exam: Normal Exam, Normal Oropharynx, Normal External Ear Exam and TM's Normal Bilaterally Neck Neck Exam: Normal Inspection and Trachea Midline; negative Tenderness Chest Chest Inspection: Normal Inspection and Symmetric Chest Wall Rise; negative Tenderness Respiratory Respiratory Exam: Normal Lung Sounds Bilat; negative Accessory Muscle Use, Chest Wall Tenderness or Respiratory Distress Respiratory Exam: Bilateral: Clear to Auscultation Cardiovascular Cardiovascular Exam: Regular Rate, Normal Rhythm and Normal Heart Sounds; negative Systolic Murmur or Diastolic Murmur Abdominal Exam Abdominal Exam: Normal Bowel Sounds, Soft and Tenderness Abdominal Tenderness: Diffuse and Severe Rectal Rectal Exam: Deferred Back Back Exam: Normal Inspection; negative (R) CVA Tenderness or (L) CVA Tenderness Extremeties Extremities Exam: Normal Inspection and Normal Capillary Refill External Exam: Female: Deferred : Speculum Exam (Female): Deferred : Bimanual Exam (female): Deferred Neurologic Neurological Exam: Alert and Oriented X3; negative Motor Sensory Deficit Psychiatric Psychiatric Exam: Normal Affect and Normal Mood Skin Skin Exam: Dry COURSE Treatment Treatment: SEE ORDERS DONE WHILE PATIE WAS IN ER. DEMOROL 12.5MG IV TIMES 2 FOR PAIN. STILL HURTING. NS 125CC/HR AND PEPCID 20MG IVPB GIVEN IN ER. LABS AND CT REPORT DISCUSSED WITH PATIENT AND HER FAMILY. SHE WILL BE ADMITTED TO HOSPITAL FOR OBSERVATION. Consultation Consultation Comments: DISCUSSED PATIENT WITH DR. FAULKNER. HE WILL ADMIT P ATIENT. Education/Counseling Education/Counseling: Patient and Family Educated On: Diagnosis ROR Labs Reviewed Laboratory Results Reviewed?: Yes Result Diagrams: 07/14/22 12:07/14/22 12:28 Laboratory: WBC 9.2 X10^3/uL (3.6-10.0) 07/14/22 12:28 RBC 3.81 X10^6/uL (3.5-5.4) 07/14/22 12:28 Hgb 11.1 g/dL (12.0-16.0) L 07/14/22 12:28 Hct 32.4 % (36.0-47.0) L 07/14/22 12:28 MCV 85.1 fL (80.0-100.0) 07/14/22 12:28 MCH 29.0 pg (27.0-34.0) 07/14/22 12:28 MCHC 34.1 g/dL (33.0-35.0) 07/14/22 12: RDW 16.0 % (11.6-16.5) 07/14/22 12:28 Plt Count 286 X10^3/uL (150.0-450.0) 07/14/22 12:28 MPV 6.4 fL (7.4-11.0) L 07/14/22 12: Neut % (Auto) 70.8 % (42.0-75.0) 07/14/22 12: Lymph % (Auto) 18.1 % (21.0-51.0) L 07/14/22 12:28 [place] % (Auto) 8.4 % (0.0-13.0) 07/14/22 12:28 Eos % (Auto) 1.3 % (0.9-2.9) 07/14/22 12:28 Baso % (Auto) 1.4 % (0.2-1.0) H 07/14/22 12:28 Neut # (Auto) 6.5 x10^3/uL (2.2-4.8) H 07/14/22 12:28 Lymph # (Auto) 1.7 X10^3/uL (1.3-2.9) 07/14/22 12:28 [place] # (Auto) 0.8 x10^3/uL (0.3-0.8) 07/14/22 12:28 Eos # (Auto) 0.1 x10^3/uL (0.0-0.2) 07/14/22 12:28 Baso # (Auto) 0.1 X10^3/uL (0.0-0.1) 07/14/22 12:28 Absolute Nucleated RBC 0.0 /100WBC 07/14/22 12:28 Sodium 132 mmol/L (136-145) L 07/14/22 12:28 Corrected Sodium TNP 07/14/22 12:28 Potassium 3.9 mmol/L (3.5-5.1) 07/14/22 12:28 Chloride 97 mmol/L (98-107) L 07/14/22 12:28 Carbon Dioxide 29.1 mmol/L (21-32) 07/14/22 12:28 BUN 21 mg/dL (7-18) H 07/14/22 12:28 Creatinine 1.38 mg/dL (0.55-1.02) H 07/14/22 12:28 Est GFR (MDRD) Af Amer 47 (>60) L 07/14/22 12:28 Est GFR (MDRD) Non-Af 39 (>60) L 07/14/22 12:28 Glucose 91 mg/dL (65-99) 07/14/22 12:28 Calcium 8.7 mg/dL (8.5-10.1) 07/14/22 12:28 Corrected Calcium 9.4 mg/dL (8.5-10.1) 07/14/22 12:28 Total Bilirubin 0.30 mg/dL (0.2-1.0) 07/14/22 12: AST 16 Units/L (15-37) 07/14/22 12:28 ALT 9 Units/L (12-78) L 07/14/22 12:28 Alkaline Phosphatase 93 Units/L (46-116) 07/14/22 12:28 Total Protein 6.8 g/dL (6.4-8.2) 07/14/22 12:28 Albumin 3.1 g/dL (3.4-5.0) L 07/14/22 12:28 Globulin 3.7 g/dL (2.5-4.5) 07/14/22 12:28 Albumin/Globulin Ratio 0.8 Ratio (1.1-2.1) L 07/14/22 12: Amylase 62 Units/L (25-115) 07/14/22 12:28 Lipase 145 Units/L (73-393) 07/14/22 12:28 Specimen Type Clean catch urine 07/14/22 14:30 Urine Color Yellow (YELLOW) 07/14/22 14:30 Urine Appearance Clear (CLEAR) 07/14/22 14:30 Urine pH 6.0 (5.0 - 8.0) 07/14/22 14:30 Ur Specific [place] 1.020 (1.000-1.030) 07/14/22 14:30 Urine Protein 3+ (NEGATIVE) 07/14/22 14:30 Urine Glucose (UA) Negative (NEGATIVE) 07/14/22 14:30 Urine Ketones Negative (NEGATIVE) 07/14/22 14: Urine Blood 2+ (NEGATIVE) 07/14/22 14:30 Urine Nitrite Negative (NEGATIVE) 07/14/22 14:30 Urine Bilirubin Negative (NEGATIVE) 07/14/22 14:30 Urine Urobilinogen Normal (NORMAL) 07/14/22 14:30 Ur Leukocyte Esterase 1+ (NEGATIVE) 07/14/22 14:30 Urine RBC 3-5 /HPF (0-3) A 07/14/22 14:30 Urine WBC 0-2 /HPF (0-5) 07/14/22 14:30 Ur Squamous Epith Cells Rare /HPF (NEGATIVE) 07/14/22 14:30 Amorphous Sediment Trace /HPF (NEGATIVE) 07/14/22 14:30 Urine Bacteria Trace /HPF (NEGATIVE) 07/14/22 14:30 Hyaline Casts Few /LPF (NEGATIVE) 07/14/22 14:30 Granular Casts Rare /LPF (NEGATIVE) 07/14/22 14:30 Ur Culture Indicated? No/not indicated 07/14/22 14:30 XRAY XRAY Interpreted by: Radiologist (REPORT NOTED.) and Self Opioid Opioid Risk Tool Age ([place] box if 16-45): No History of Preadolescent Sexual Abuse: No Total: 0 Total Score Risk Category: Low Risk Copyright: Jeffrey SWEENEY predicting aberrant behaviors Discharge Plan Diagnosis Discharge Problem: Abdominal pain Discharge Plan Patient Disposition: 09 ADMITTED INPATIENT Condition: Stable Orders to Discharge Patient Discharge Orders: Transfer (Routine); Ordered 07/14/22 Ordered By: RIC ANN
[2022-07-14] MEDS ORDERED: DEMEROL INJ IVP ONE ×2 (12:19→13:21)
[2022-07-14] MEDS ORDERED: ZOFRAN INJ 4 MG VIAL IVP ONE (12:19)
[2022-07-14] MEDS ORDERED: DEMEROL INJ ONE ×2 (12:20→13:19)
[2022-07-14] MEDS ORDERED: NS 1,000 ML IV 1,000 ML ONE (12:21)
[2022-07-14] MEDS ORDERED: ZOFRAN INJ 4 MG VIAL ONE (12:21)
[2022-07-14] MEDS: NS 1,000 ML IV 1,000 ML IV SCH ×2 (12:30→21:13)
[2022-07-14 12:42] LABS: BASOPHILS # (AUTO) 0.1 X10^3/uL (0.0-0.1); BASOPHILS % (AUTO) 1.4 % (0.2-1.0); EOSINOPHILS # (AUTO) 0.1 x10^3/uL (0.0-0.2); EOSINOPHILS % (AUTO) 1.3 % (0.9-2.9); HEMATOCRIT 32.4 % (36.0-47.0); HEMOGLOBIN 11.1 g/dL (12.0-16.0); LYMPHOCYTES # (AUTO) 1.7 X10^3/uL (1.3-2.9); LYMPHOCYTES % (AUTO) 18.1 % (21.0-51.0); MEAN CORPUSCULAR HGB CONC 34.1 g/dL (33.0-35.0); MEAN CORPUSCULAR VOLUME 85.1 fL (80.0-100.0); MEAN PLATELET VOLUME 6.4 fL (7.4-11.0); MONOCYTES # (AUTO) 0.8 x10^3/uL (0.3-0.8); MONOCYTES % (AUTO) 8.4 % (0.0-13.0); NEUTROPHILS # (AUTO) 6.5 x10^3/uL (2.2-4.8); NEUTROPHILS % (AUTO) 70.8 % (42.0-75.0); RED BLOOD COUNT 3.81 X10^6/uL (3.5-5.4); WHITE BLOOD COUNT 9.2 X10^3/uL (3.6-10.0)
[2022-07-14 12:50] LABS: ALANINE AMINOTRANSFERASE 9 Units/L (12-78); ALBUMIN 3.1 g/dL (3.4-5.0); ALKALINE PHOSPHATASE 93 Units/L (46-116); AMYLASE 62 Units/L (25-115); ASPARTATE AMINO TRANSFERASE 16 Units/L (15-37); BLOOD UREA NITROGEN 21 mg/dL (7-18); CALCIUM 8.7 mg/dL (8.5-10.1); CARBON DIOXIDE 29.1 mmol/L (21-32); CHLORIDE 97 mmol/L (98-107); COR CA(FOR HYPOALB) 9.4 mg/dL (8.5-10.1); CREATININE 1.38 mg/dL (0.55-1.02); LIPASE 145 Units/L (73-393); SODIUM 132 mmol/L (136-145); TOTAL PROTEIN 6.8 g/dL (6.4-8.2); eGFR NON BLACK RACES 39 (>60)
[2022-07-14] MEDS ORDERED: PEPCID 20 MG VIAL 20 MG in NS 50 ML IV 50 ML IV ONE (14:25)
[2022-07-14] MEDS ORDERED: PEPCID 20 MG VIAL ONE (14:27)
[2022-07-14] MEDS ORDERED: NS 50 ML IV 50 ML IV ONE (14:28)
[2022-07-14 14:44] LABS: BILIRUBIN,URINE NEGATIVE (NEGATIVE); BLOOD/HEMOGLOBIN,URINE 2+ (NEGATIVE); GLUCOSE, URINE NEGATIVE (NEGATIVE); KETONES,URINE NEGATIVE (NEGATIVE); LEUKOCYTE ESTERASE ,URINE 1+ (NEGATIVE); NITRITES,URINE NEGATIVE (NEGATIVE); PROTEIN,URINE 3+ (NEGATIVE); UROBILINOGEN,URINE NORMAL (NORMAL)
[2022-07-14 14:52] LABS: APPEARANCE,URINE CLEAR (CLEAR); COLOR,URINE YELLOW (YELLOW)
[2022-07-14 15:02] LABS: BACTERIA,URINE TRACE /HPF (NEGATIVE); SQUAMOUS EPITHELIAL CELL,UR RARE /HPF (NEGATIVE)
[2022-07-14 15:03] LABS: GRANULAR CASTS,URINE RARE /LPF (NEGATIVE); HYALINE CASTS, URINE FEW /LPF (NEGATIVE)
--- NOTE | 2022-07-14 15:44 | CT ---
HISTORYABDOMINAL PAIN, CONSTIPATIONSTUDYABDOMEN/PELVIS W/O CONCOMPARISONTECHNIQUEMultiple axial images of the abdomen and pelvis were obtained from the lung bases to the pubic symphysis without the administration of IV contrast. Dose reduction techniques including Automated Exposure Control (AEC) and adjustment of mA and kV were utilized.FINDINGSNonspecific peripheral opacity in the lungs compatible with fibrosis. No worrisome mass, nodule, or effusion. The heart size is normal. The liver, spleen, gallbladder, pancreas, and adrenal glands are normal. There is atrophy of the right kidney. There are cysts in both kidneys. There are 2 nonobstructing stones in the right kidney with the largest measuring up to 1.1 cm in size. The largest left-sided stone measures up to 1 cm in diameter. There is no hydronephrosis on either side. There is moderate to severe systemic atherosclerosis. There is questionably some wall thickening in the stomach. There is no abnormal dilation of the small bowel. There are air-fluid levels in the colon. The appendix is not identified. Urinary bladder is collapsed. The uterus is not definitively identified. There is trace free fluid the pelvis. There is scoliosis and degeneration in the spine. There is severe spinal stenosis at L2-L3 and L3-L4..IMPRESSION1. Nonspecific bowel gas pattern with air-fluid levels in the colon but no obstructing mass. 2. Question wall thickening of the stomach. 3. Nonobstructing renal stones bilaterally. 4. Exam limited by lack of oral or IV contrast.Electronically signed by: Jj Linares (Jul 14, 2022 15:42:37)
[2022-07-14] MEDS ORDERED: DILAUDID INJ IVP ONE (16:10)
[2022-07-14] MEDS ORDERED: DILAUDID INJ ONE (16:11)
[2022-07-14] MEDS ORDERED: DILAUDID INJ IVP PRN (17:19)
[2022-07-14] MEDS ORDERED: ZOFRAN INJ 4 MG VIAL IVP PRN (17:19)
[2022-07-14 17:23] VITALS: BMI 16.0
[2022-07-14] MEDS: PEPCID 20 MG VIAL 20 MG in NS 50 ML IV 50 ML IV SCH ×2 (17:29→21:12)
[2022-07-14] MEDS ORDERED: AMBIEN PO SCH (21:00)
[2022-07-14] MEDS: MILK OF MAGNESIA PO SCH (21:12)
[2022-07-14] MEDS: PROTONIX INJ 40 MG VIAL IVP SCH (21:12)
[2022-07-14] MEDS: REQUIP PO SCH (21:12)
[2022-07-14] MEDS: COLACE CAP 100 MG PO SCH (21:12)
[2022-07-14] MEDS: LOPRESSOR TAB 50 MG PO SCH (21:12)
[2022-07-14] MEDS: RESTORIL CAP 15 MG PO PRN (21:48)
[2022-07-15 04:51] LABS: BASOPHILS # (AUTO) 0.1 X10^3/uL (0.0-0.1); BASOPHILS % (AUTO) 0.7 % (0.2-1.0); EOSINOPHILS # (AUTO) 0.3 x10^3/uL (0.0-0.2); HEMATOCRIT 27.2 % (36.0-47.0); HEMOGLOBIN 9.4 g/dL (12.0-16.0); LYMPHOCYTES # (AUTO) 1.8 X10^3/uL (1.3-2.9); LYMPHOCYTES % (AUTO) 25.7 % (21.0-51.0); MEAN CORPUSCULAR HEMOGLOBIN 29.3 pg (27.0-34.0); MEAN CORPUSCULAR HGB CONC 34.6 g/dL (33.0-35.0); MEAN CORPUSCULAR VOLUME 84.7 fL (80.0-100.0); MEAN PLATELET VOLUME 6.6 fL (7.4-11.0); MONOCYTES # (AUTO) 0.7 x10^3/uL (0.3-0.8); MONOCYTES % (AUTO) 10.1 % (0.0-13.0); NEUTROPHILS % (AUTO) 58.5 % (42.0-75.0); RED BLOOD COUNT 3.21 X10^6/uL (3.5-5.4); RED CELL DISTRIBUTION WIDTH 15.9 % (11.6-16.5); WHITE BLOOD COUNT 6.9 X10^3/uL (3.6-10.0)
[2022-07-15 05:00] LABS: ALANINE AMINOTRANSFERASE 11 Units/L (12-78); ALBUMIN 2.6 g/dL (3.4-5.0); ALKALINE PHOSPHATASE 74 Units/L (46-116); ASPARTATE AMINO TRANSFERASE 16 Units/L (15-37); BLOOD UREA NITROGEN 18 mg/dL (7-18); CALCIUM 7.9 mg/dL (8.5-10.1); CHLORIDE 101 mmol/L (98-107); CREATININE 1.33 mg/dL (0.55-1.02); SODIUM 136 mmol/L (136-145); TOTAL PROTEIN 5.7 g/dL (6.4-8.2); eGFR NON BLACK RACES 41 (>60)
[2022-07-15] MEDS: NS 1,000 ML IV 1,000 ML IV SCH ×3 (05:48→20:02)
[2022-07-15] MEDS ORDERED: NS 50 ML IV 50 ML IV ONE (08:15)
[2022-07-15] MEDS: DEMEROL INJ IVP PRN ×2 (09:00→18:00)
[2022-07-15] MEDS: XANAX PO PRN (09:02)
[2022-07-15] MEDS: LOPRESSOR TAB 50 MG PO SCH ×2 (09:02→20:00)
[2022-07-15] MEDS: PEPCID 20 MG VIAL 20 MG in NS 50 ML IV 50 ML IV SCH (09:02)
[2022-07-15] MEDS: PROTONIX INJ 40 MG VIAL IVP SCH ×2 (09:02→20:00)
[2022-07-15] MEDS: MILK OF MAGNESIA PO SCH (09:11)
[2022-07-15] MEDS: FLAGYL IV PREMIX 500 MG BAG 500 MG/100 ML BAG IV SCH ×3 (09:31→20:02)
[2022-07-15] MEDS: NICOTINE PATCH TD SCH (09:32)
[2022-07-15] MEDS: LOVENOX INJ 30 MG SYR SC SCH (09:32)
[2022-07-15] MEDS: CHECK PATCH XX SCH ×2 (09:43→20:06)
--- NOTE | 2022-07-15 13:22 | DR.H&P ---
H&P - History & Physical for Day of: H&P Date: 07/14/22 - Chief Complaint Chief Complaint: abdominal pain, n/v - History of Present Illness History of Present Illness: PT IS 82 WF, ER ADMISSION AFTER PRESENTING WITH CO INTRACTABLE ABDOMINAL PAIN, LOCALIZED TO LLQ. PT REPORTS ONSET THURSDAY AND GRADUALLY WORSENED. PT HAS PMH OF COPD WITH RESP FAILURE, HTN, OA, GERD, CAD. PT HAD CT ABDOMEN AND PELVIS IN ER ON ARRIVAL. PT ADMITTED FOR TREATMENT OF ACUTE ILLNESS. - Past Medical History Past Medical History: Hypertension, Anxiety, Anemia, CVA, COPD, GERD, Arthritis, Headaches, Sleep Apnea - Past Surgical History Surgical History: Other - Family History Family Medical History: [place], Hypertension - Social History Does patient currently use any type of tobacco product: Yes Have you used tobacco products in the last 12 months: Yes Type of Tobacco Use: Cigarettes How many years tobacco product used: 47 Does any household member use tobacco: Yes Alcohol Use: None Drug Use: None - Medications Home Medications: codeine Allergy (Verified 11/12/18 08:45) levofloxacin Allergy (Verified 11/12/18 08:45) Penicillins Allergy (Verified 11/12/18 08:45) Sulfa (Sulfonamide Antibiotics) [SULFA] Allergy (Verified 11/12/18 08:45) zolpidem [From Ambien] Adverse Reaction (Unknown, Verified 12/31/21 20:05) CONFUSION CONTINUE taking the following medications lisinopril 10 mg tablet 10 mg PO QDAY 07/14/22 [History] metoprolol succinate 25 mg tablet,extended release 24 hr 50 mg PO QDAY 07/14/22 [History] - Review of Systems Constitutional: Weakness Eyes: No Symptoms Reported ENT: No Symptoms Reported Respiratory: Shortness of Breath Cardiovascular: No Symptoms Reported Gastrointestinal: Nausea, Vomiting, Abdominal Pain Musculoskeletal: Back Pain Skin: No Symptoms Reported Neurological: No Symptoms Reported - Physical Exam Vital Signs: Temperature 97.9 F Pulse Rate [Right Radial] 52 Pulse Rate 77 Respiratory Rate 18 Blood Pressure [Left Arm] 138/71 Blood Pressure [Right Arm] 181/79 Blood Pressure 123/56 O2 Sat by Pulse Oximetry 98 Oriented: Normal Eyes: Blurred Vision (CHRONIC FINDING) Nose: Normal Throat: Normal Respiratory: RLL Diminished, LLL Diminished Cardiovascular: Normal. negative: Edema : Normal Auscultation: Bowel Sounds: Normal Palpation: Normal Tenderness: LUQ, LLQ, Epigastric Skin: Decreased Turgur Musculoskeletal: Back:Lumbar Psychiatric: Anxiety Affect: Anxious Speech Pattern: Clear, Appropriate - Assessment/Plan (1) Acute diverticulitis Status: Acute Plan: ADMIT, GENTLE IV HYDRATION. IV ATBX THERAPY, PAIN CONTROL. BP CONTROL, VERIFY HOME MEDICATION. STRICT I&OS (2) Hyponatremia Status: Acute (3) COPD (chronic obstructive pulmonary disease) Status: Chronic (4) Hypertension Status: Chronic (5) LORENA (generalized anxiety disorder) Status: Acute - Allergies Allergies/Adverse Reactions: Allergies Allergy/AdvReac Type Severity Reaction Status Date / Time codeine Allergy Verified 11/12/18 08:45 levofloxacin Allergy Verified 11/12/18 08:45 Penicillins Allergy Verified 11/12/18 08:45 Sulfa (Sulfonamide Allergy Verified 11/12/18 08:45 Antibiotics) [SULFA] zolpidem [From Ambien] AdvReac Unknown CONFUSION Verified 12/31/21 20:05
[2022-07-15] MEDS ORDERED: PROVENTIL NEB TX 0.083% 2.5MG/ 3ML NEB PRN (13:58)
--- NOTE | 2022-07-15 16:41 | RAD ---
HISTORYCOPD, RESP FAILURESTUDYChest x-ray two viewsCOMPARISONX-ray 04/10/2022FINDINGSCOPD. Calcified granuloma are seen in the right middle lobe. Increased interstitial densities are seen in the lung bases compared to prior study. There are likely increased interstitial densities in the periphery of the right lung more superiorly, also. Appearance is probably from chronic interstitial lung disease but could be due to interstitial pneumonia.Heart is normal in size. No pneumothorax or pleural effusion is seen. There is prominent thoracolumbar scoliosis.IMPRESSIONNew interstitial densities are seen with underlying COPD. Densities could be due to chronic interstitial lung disease or possible interstitial pneumonia. Continued x-ray follow-up is recommended.Electronically signed by: Gerardo Knox (Jul 15, 2022 16:39:40)
[2022-07-15] MEDS: RESTORIL CAP 15 MG PO PRN (19:44)
[2022-07-15] MEDS: COLACE CAP 100 MG PO SCH (20:00)
[2022-07-15] MEDS: REQUIP PO SCH (20:00)
[2022-07-15] MEDS: PULMICORT NEB TX 0.5 MG NEB SCH (21:10)
[2022-07-16] MEDS: FLAGYL IV PREMIX 500 MG BAG 500 MG/100 ML BAG IV SCH ×4 (02:27→21:00)
[2022-07-16] MEDS: NS 1,000 ML IV 1,000 ML IV SCH ×2 (04:54→13:08)
[2022-07-16 05:19] LABS: BASOPHILS # (AUTO) 0.1 X10^3/uL (0.0-0.1); BASOPHILS % (AUTO) 2.3 % (0.2-1.0); EOSINOPHILS # (AUTO) 0.3 x10^3/uL (0.0-0.2); EOSINOPHILS % (AUTO) 5.1 % (0.9-2.9); HEMATOCRIT 25.1 % (36.0-47.0); HEMOGLOBIN 8.7 g/dL (12.0-16.0); LYMPHOCYTES # (AUTO) 1.6 X10^3/uL (1.3-2.9); LYMPHOCYTES % (AUTO) 24.8 % (21.0-51.0); MEAN CORPUSCULAR HEMOGLOBIN 29.4 pg (27.0-34.0); MEAN CORPUSCULAR HGB CONC 34.5 g/dL (33.0-35.0); MEAN CORPUSCULAR VOLUME 85.1 fL (80.0-100.0); MEAN PLATELET VOLUME 6.8 fL (7.4-11.0); MONOCYTES # (AUTO) 0.7 x10^3/uL (0.3-0.8); MONOCYTES % (AUTO) 10.5 % (0.0-13.0); NEUTROPHILS # (AUTO) 3.7 x10^3/uL (2.2-4.8); NEUTROPHILS % (AUTO) 57.3 % (42.0-75.0); RED BLOOD COUNT 2.95 X10^6/uL (3.5-5.4); RED CELL DISTRIBUTION WIDTH 16.1 % (11.6-16.5); WHITE BLOOD COUNT 6.4 X10^3/uL (3.6-10.0)
[2022-07-16 05:37] LABS: ALANINE AMINOTRANSFERASE 14 Units/L (12-78); ALBUMIN 2.5 g/dL (3.4-5.0); ALKALINE PHOSPHATASE 80 Units/L (46-116); ASPARTATE AMINO TRANSFERASE 19 Units/L (15-37); BLOOD UREA NITROGEN 17 mg/dL (7-18); CALCIUM 7.6 mg/dL (8.5-10.1); CARBON DIOXIDE 29.2 mmol/L (21-32); CHLORIDE 103 mmol/L (98-107); COR CA(FOR HYPOALB) 8.8 mg/dL (8.5-10.1); CREATININE 1.15 mg/dL (0.55-1.02); SODIUM 136 mmol/L (136-145); TOTAL PROTEIN 5.6 g/dL (6.4-8.2); eGFR NON BLACK RACES 48 (>60)
[2022-07-16] MEDS: PULMICORT NEB TX 0.5 MG NEB SCH ×2 (08:45→21:02)
[2022-07-16] MEDS: LOVENOX INJ 30 MG SYR SC SCH (09:14)
[2022-07-16] MEDS: PROTONIX INJ 40 MG VIAL IVP SCH ×2 (09:15→21:11)
[2022-07-16] MEDS: LOPRESSOR TAB 50 MG PO SCH ×2 (09:16→21:11)
[2022-07-16] MEDS: ULTRAM PO PRN ×2 (09:17→21:17)
[2022-07-16] MEDS: XANAX PO PRN (09:17)
[2022-07-16] MEDS: NICOTINE PATCH TD SCH (09:18)
[2022-07-16] MEDS: CHECK PATCH XX SCH ×2 (09:18→21:00)
[2022-07-16] MEDS: MILK OF MAGNESIA PO SCH (09:33)
[2022-07-16] MEDS: PEPCID 20 MG VIAL 20 MG in NS 50 ML IV 50 ML IV SCH (10:00)
[2022-07-16] MEDS ORDERED: CATAPRES TAB 0.1 MG PO ONE (12:30)
[2022-07-16] MEDS ORDERED: NORMODYNE INJ 20 MG VIAL IV PRN (12:30)
[2022-07-16] MEDS ORDERED: APRESOLINE INJ 20 MG VIAL IVP ONE (12:30)
[2022-07-16] MEDS: DEMEROL INJ IVP PRN (13:03)
--- NOTE | 2022-07-16 13:05 | CT ---
HISTORYLEFT LOWER ABD TENDERNESS.STUDYABDOMEN/PELVIS WITH CONCOMPARISONNon contrasted CT abdomen and pelvis 07/14/2022TECHNIQUEMultiple CT axial images of the abdomen and pelvis were obtained with IV contrast. Coronal and sagittal images were reconstructed. Dose reduction techniques included Automated Exposure Control (AEC) and adjustment of mA and kV.FINDINGSSmall right pleural effusion is new. Calcified granuloma in the right lung base. No lung consolidation. Heart size normal.Trace perihepatic fluid and small volume pelvic ascites is present, new since prior study.There are small collections of air in the anterior lower right abdomen. This is such a small amount that it is difficult to localize the exact anatomic space. But it could be pneumoperitoneum. Might also be within the abdominal wall musculature. This was not present previously.Oral contrast has moved through the entire bowel into the right colon without evidence for obstruction. The bowel is not dilated. There is no wall thickening in the bowel or edema around the bowel.The liver is normal in size and configuration. Gallbladder, spleen, right adrenal gland and pancreas are unremarkable. I do not identify the left adrenal gland very well.Renal enhancement is symmetric with no solid mass. There is no hydronephrosis or significant perirenal edema. Multiple renal cysts are present. Bilateral renal calcifications are also noted. The bladder is minimally distended. It has no wall thickening or perivesical edema.Degenerative changes are present in the spine. Moderate scoliosis is present.IMPRESSION1. Possible trace volume pneumoperitoneum, without etiology2. New right effusion and small volume ascites3. Nonobstructing renal calculiElectronically signed by: Jackson Antony (Jul 16, 2022 13:03:38)
--- NOTE | 2022-07-16 13:59 | EKG ---
Test Reason : htn Blood Pressure : */* mmHG Vent. Rate : 54 BPM Atrial Rate : 54 BPM P-R Int : 168 ms QRS Dur : 72 ms QT Int : 438 ms P-R-T Axes : 77 57 38 degrees QTc Int : 415 ms Sinus bradycardia Otherwise normal ECG Referred By: Confirmed By:
[2022-07-16] MEDS: CIPRO IV 400 MG PREMIX* 400 MG/200 ML IV.SOLN. IV SCH (21:00)
[2022-07-16] MEDS: REQUIP PO SCH (21:10)
[2022-07-16] MEDS: COLACE CAP 100 MG PO SCH (21:11)
[2022-07-16] MEDS: RESTORIL CAP 15 MG PO PRN (21:18)
[2022-07-17] MEDS: FLAGYL IV PREMIX 500 MG BAG 500 MG/100 ML BAG IV SCH ×4 (03:10→21:09)
[2022-07-17 05:59] LABS: BASOPHILS # (AUTO) 0.1 X10^3/uL (0.0-0.1); BASOPHILS % (AUTO) 1.2 % (0.2-1.0); EOSINOPHILS # (AUTO) 0.3 x10^3/uL (0.0-0.2); EOSINOPHILS % (AUTO) 4.2 % (0.9-2.9); HEMATOCRIT 27.6 % (36.0-47.0); HEMOGLOBIN 9.4 g/dL (12.0-16.0); LYMPHOCYTES # (AUTO) 1.6 X10^3/uL (1.3-2.9); LYMPHOCYTES % (AUTO) 20.2 % (21.0-51.0); MEAN CORPUSCULAR HEMOGLOBIN 29.1 pg (27.0-34.0); MEAN CORPUSCULAR HGB CONC 34.1 g/dL (33.0-35.0); MEAN CORPUSCULAR VOLUME 85.4 fL (80.0-100.0); MEAN PLATELET VOLUME 6.8 fL (7.4-11.0); MONOCYTES # (AUTO) 0.7 x10^3/uL (0.3-0.8); MONOCYTES % (AUTO) 9.3 % (0.0-13.0); NEUTROPHILS # (AUTO) 5.2 x10^3/uL (2.2-4.8); NEUTROPHILS % (AUTO) 65.1 % (42.0-75.0); RED BLOOD COUNT 3.23 X10^6/uL (3.5-5.4); WHITE BLOOD COUNT 7.9 X10^3/uL (3.6-10.0)
[2022-07-17 06:25] LABS: ALANINE AMINOTRANSFERASE 13 Units/L (12-78); ALBUMIN 2.7 g/dL (3.4-5.0); ALKALINE PHOSPHATASE 89 Units/L (46-116); ASPARTATE AMINO TRANSFERASE 19 Units/L (15-37); BLOOD UREA NITROGEN 17 mg/dL (7-18); CALCIUM 7.9 mg/dL (8.5-10.1); CARBON DIOXIDE 29.2 mmol/L (21-32); CHLORIDE 101 mmol/L (98-107); COR CA(FOR HYPOALB) 8.9 mg/dL (8.5-10.1); CREATININE 1.12 mg/dL (0.55-1.02); SODIUM 136 mmol/L (136-145); eGFR NON BLACK RACES 50 (>60)
[2022-07-17] MEDS: PULMICORT NEB TX 0.5 MG NEB SCH ×2 (08:25→21:00)
[2022-07-17] MEDS: CIPRO IV 400 MG PREMIX* 400 MG/200 ML IV.SOLN. IV SCH ×2 (08:27→21:09)
[2022-07-17] MEDS: PEPCID 20 MG VIAL 20 MG in NS 50 ML IV 50 ML IV SCH (08:29)
[2022-07-17] MEDS: ULTRAM PO PRN ×3 (08:29→21:04)
[2022-07-17] MEDS: PROTONIX INJ 40 MG VIAL IVP SCH ×2 (08:29→21:08)
[2022-07-17] MEDS: XANAX PO PRN (08:30)
[2022-07-17] MEDS: CHECK PATCH XX SCH ×2 (08:30→21:00)
[2022-07-17] MEDS: LOPRESSOR TAB 50 MG PO SCH (08:30)
[2022-07-17] MEDS: NICOTINE PATCH TD SCH (08:33)
[2022-07-17] MEDS: MILK OF MAGNESIA PO SCH (08:33)
[2022-07-17] MEDS: LOVENOX INJ 30 MG SYR SC SCH (08:33)
--- NOTE | 2022-07-17 08:39 | RAD ---
HISTORYPneumoperitoneumSTUDYKUBCOMPARISO NCT abdomen pelvis with contrast 07/16/2022FINDINGSContrast is identified throughout the colon from recent CT abdomen pelvis. Contrast is present within the bladder from recent CT abdomen pelvis. The abdominal gas pattern is nonspecific and nonobstructive. There is no obvious pneumoperitoneum however free intraperitoneal air cannot be entirely excluded in the absence of an upright film showing both hemidiaphragms. If pneumoperitoneum is a strong clinical consideration this should be obtained. Calcifications in the right upper quadrant may be within the kidney. Regional skeleton is intact.IMPRESSIONNonspecific nonobstructive bowel gas pattern.Small pneumoperitoneum cannot be excluded due to the absence of an upright examination demonstrating both hemidiaphragms. If pneumoperitoneum is a strong clinical consideration this film should be obtained.Electronically signed by: MYESHA SENA (Jul 17, 2022 08:36:55)
--- NOTE | 2022-07-17 08:41 | RAD ---
HISTORYCOPDSTUDYCHEST x-ray, 1 VIEWCOMPARISONX-ray 07/15/2022FINDINGSProminent scoliosis. Heart is normal in size. Prominent COPD with diffuse abnormal interstitial densities. This could be chronic interstitial lung disease, noncardiogenic pulmonary edema, or viral pneumonia. There appears to be developing infiltrate at the right lung base that could be lobar pneumonia or atelectasis. No pneumothorax is seen.IMPRESSIONIncreasing infiltrate at the right lung base may be lobar pneumonia or atelectasis. Persistent diffuse increased interstitial densities are seen in the lungs. Continued x-ray follow up to document resolution is recommended.Electronically signed by: Gerardo Knox (Jul 17, 2022 08:40:27)
[2022-07-17] MEDS ORDERED: TOPROL XL PO SCH ×2 (09:00→21:00)
[2022-07-17] MEDS: ZESTRIL TAB 10 MG PO SCH (10:26)
[2022-07-17] MEDS: DEMEROL INJ IVP PRN (10:51)
[2022-07-17] MEDS ORDERED: MICRO K EXTEN CAP 10 MEQ PO ONE (11:00)
[2022-07-17] MEDS ORDERED: LASIX PO ONE (11:00)
--- NOTE | 2022-07-17 11:03 | DR.PROGNOT ---
Hospital Progress Notes - Progress Note for Day of: Progress Note Date: 07/17/22 - Chief Complaint Chief Complaint: moderate abdominal pain with bloating .. no nausea or vomiting . KUB was read as normal . CBC and lytes are normal .. dehydration is corrected with mild elevated Creatin. afebrile .. - Past Medical Family Social History Past Med/Fam/Surg Hx: No changes since H&P Allergies: Allergies codeine Allergy (Verified 11/12/18 08:45) levofloxacin Allergy (Verified 11/12/18 08:45) Penicillins Allergy (Verified 11/12/18 08:45) Sulfa (Sulfonamide Antibiotics) [SULFA] Allergy (Verified 11/12/18 08:45) zolpidem [From Ambien] Adverse Reaction (Unknown, Verified 12/31/21 20:05) CONFUSION - Review Of Systems ROS: No change since H&P - Vital Signs Vital Signs: Temperature 97.9 F Pulse Rate [Right Radial] 55 Pulse Rate 67 Respiratory Rate 20 Blood Pressure [Left Arm] 163/71 Blood Pressure [Right Arm] 181/79 Blood Pressure 123/56 O2 Sat by Pulse Oximetry 95 - Physical Exam Oriented: Normal Eyes: Blurred Vision (CHRONIC FINDING) Nose: Normal Throat: Normal Cardiovascular: Normal. negative: Edema : Normal GI:Auscultation: Normal GI:Palpation: Normal GI: Tenderness: LLQ (soft, full abdomen with LLQ tenderness . no rebound today .. BS+) Skin: Decreased Turgur Musculoskeletal: Back:Lumbar Psychiatric: Anxiety Affect: Anxious Speech Pattern: Clear, Appropriate - Laboratory and Diagnostics Result Diagrams: 07/17/22 05:33 07/17/22 05:33 Labs: 07/15/22 13:10 Stool Stool Culture - Final 07/15/22 13:10 Stool - Final Laboratory WBC 7.9 X10^3/uL (3.6-10.0) 07/17/22 05:33 RBC 3.23 X10^6/uL (3.5-5.4) L 07/17/22 05:33 Hgb 9.4 g/dL (12.0-16.0) L 07/17/22 05:33 Hct 27.6 % (36.0-47.0) L 07/17/22 05:33 MCV 85.4 fL (80.0-100.0) 07/17/22 05:33 MCH 29.1 pg (27.0-34.0) 07/17/22 05:33 MCHC 34.1 g/dL (33.0-35.0) 07/17/22 05:33 RDW 16.0 % (11.6-16.5) 07/17/22 05:33 Plt Count 240 X10^3/uL (150.0-450.0) 07/17/22 05:33 MPV 6.8 fL (7.4-11.0) L 07/17/22 05:33 Neut % (Auto) 65.1 % (42.0-75.0) 07/17/22 05:33 Lymph % (Auto) 20.2 % (21.0-51.0) L 07/17/22 05:33 [place] % (Auto) 9.3 % (0.0-13.0) 07/17/22 05:33 Eos % (Auto) 4.2 % (0.9-2.9) H 07/17/22 05:33 Baso % (Auto) 1.2 % (0.2-1.0) H 07/17/22 05:33 Neut # (Auto) 5.2 x10^3/uL (2.2-4.8) H 07/17/22 05:33 Lymph # (Auto) 1.6 X10^3/uL (1.3-2.9) 07/17/22 05:33 [place] # (Auto) 0.7 x10^3/uL (0.3-0.8) 07/17/22 05:33 Eos # (Auto) 0.3 x10^3/uL (0.0-0.2) H 07/17/22 05:33 Baso # (Auto) 0.1 X10^3/uL (0.0-0.1) 07/17/22 05:33 Absolute Nucleated RBC 0.0 /100WBC 07/17/22 05:33 Sodium 136 mmol/L (136-145) 07/17/22 05:33 Corrected Sodium TNP 07/17/22 05:33 Potassium 4.2 mmol/L (3.5-5.1) 07/17/22 05:33 Chloride 101 mmol/L (98-107) 07/17/22 05:33 Carbon Dioxide 29.2 mmol/L (21-32) 07/17/22 05:33 BUN 17 mg/dL (7-18) 07/17/22 05:33 Creatinine 1.12 mg/dL (0.55-1.02) H 07/17/22 05:33 Est GFR (MDRD) Af Amer > 60 (>60) 07/17/22 05:33 Est GFR (MDRD) Non-Af 50 (>60) L 07/17/22 05:33 Glucose 80 mg/dL (65-99) 07/17/22 05:33 Calcium 7.9 mg/dL (8.5-10.1) L 07/17/22 05:33 Corrected Calcium 8.9 mg/dL (8.5-10.1) 07/17/22 05:33 Total Bilirubin 0.30 mg/dL (0.2-1.0) 07/17/22 05:33 AST 19 Units/L (15-37) 07/17/22 05:33 ALT 13 Units/L (12-78) 07/17/22 05:33 Alkaline Phosphatase 89 Units/L (46-116) 07/17/22 05:33 Total Protein 6.0 g/dL (6.4-8.2) L 07/17/22 05:33 Albumin 2.7 g/dL (3.4-5.0) L 07/17/22 05:33 Globulin 3.3 g/dL (2.5-4.5) 07/17/22 05:33 Albumin/Globulin Ratio 0.8 Ratio (1.1-2.1) L 07/17/22 05:33 Amylase 62 Units/L (25-115) 07/14/22 12:28 Lipase 145 Units/L (73-393) 07/14/22 12:28 Specimen Type Clean catch urine 07/14/22 14:30 Urine Color Yellow (YELLOW) 07/14/22 14:30 Urine Appearance Clear (CLEAR) 07/14/22 14:30 Urine pH 6.0 (5.0 - 8.0) 07/14/22 14:30 Ur Specific [place] 1.020 (1.000-1.030) 07/14/22 14:30 Urine Protein 3+ (NEGATIVE) 07/14/22 14:30 Urine Glucose (UA) Negative (NEGATIVE) 07/14/22 14:30 Urine Ketones Negative (NEGATIVE) 07/14/22 14:30 Urine Blood 2+ (NEGATIVE) 07/14/22 14:30 Urine Nitrite Negative (NEGATIVE) 07/14/22 14:30 Urine Bilirubin Negative (NEGATIVE) 07/14/22 14:30 Urine Urobilinogen Normal (NORMAL) 07/14/22 14:30 Ur Leukocyte Esterase 1+ (NEGATIVE) 07/14/22 14:30 Urine RBC 3-5 /HPF (0-3) A 07/14/22 14:30 Urine WBC 0-2 /HPF (0-5) 07/14/22 14:30 Ur Squamous Epith Cells Rare /HPF (NEGATIVE) 07/14/22 14:30 Amorphous Sediment Trace /HPF (NEGATIVE) 07/14/22 14:30 Urine Bacteria Trace /HPF (NEGATIVE) 07/14/22 14:30 Hyaline Casts Few /LPF (NEGATIVE) 07/14/22 14:30 Granular Casts Rare /LPF (NEGATIVE) 07/14/22 14:30 Ur Culture Indicated? No/not indicated 07/14/22 14:30 Stl Occult Blood (IFOB) Negative (NEGATIVE) 07/15/22 13:10 Stool for White Cells Negative (NEGATIVE) 07/15/22 13:10 Stl C. diff Tox B Gene Negative (NEGATIVE) 07/15/22 13:10 Stl C. diff [id number] Negative (NEGATIVE) 07/15/22 13:10 SARS-CoV-2 (PCR) Negative (NEGATIVE) 07/14/22 16:10 Influenza Type A (PCR) Negative (NEGATIVE) 07/14/22 16:10 Influenza Type B (PCR) Negative (NEGATIVE) 07/14/22 16:10 RSV (PCR) Negative (NEGATIVE) 07/14/22 16:10 - Assessment and Plan 1: subsiding sigmoid diverticulitis .. same IV ABT .( Flagyl and Cipro ) . to follow as out Pt in 2 weeks.. - Problem Patient Problems: Patient Problems COPD (chronic obstructive pulmonary disease) (Chronic) J44.9 Hypertension (Chronic) I10 LORENA (generalized anxiety disorder) (Acute) F41.1 Abdominal pain (Acute) R10.9 Acute diverticulitis (Acute) K57.92 Hyponatremia (Acute) E87.1
[2022-07-17] MEDS ORDERED: VISTARIL PO PRN (15:30)
[2022-07-17] MEDS: RESTORIL CAP 15 MG PO PRN (21:04)
[2022-07-17] MEDS: COLACE CAP 100 MG PO SCH (21:04)
[2022-07-17] MEDS: XANAX PO SCH (21:08)
[2022-07-17] MEDS: REQUIP PO SCH (21:08)
[2022-07-18] MEDS: FLAGYL IV PREMIX 500 MG BAG 500 MG/100 ML BAG IV SCH ×2 (02:55→08:51)
[2022-07-18] MEDS: DEMEROL INJ IVP PRN (03:44)
[2022-07-18 04:59] LABS: BASOPHILS # (AUTO) 0.1 X10^3/uL (0.0-0.1); BASOPHILS % (AUTO) 1.4 % (0.2-1.0); EOSINOPHILS # (AUTO) 0.3 x10^3/uL (0.0-0.2); EOSINOPHILS % (AUTO) 4.1 % (0.9-2.9); HEMATOCRIT 27.9 % (36.0-47.0); HEMOGLOBIN 9.7 g/dL (12.0-16.0); LYMPHOCYTES # (AUTO) 1.9 X10^3/uL (1.3-2.9); LYMPHOCYTES % (AUTO) 24.6 % (21.0-51.0); MEAN CORPUSCULAR HEMOGLOBIN 29.5 pg (27.0-34.0); MEAN CORPUSCULAR HGB CONC 34.8 g/dL (33.0-35.0); MEAN CORPUSCULAR VOLUME 84.9 fL (80.0-100.0); MEAN PLATELET VOLUME 6.8 fL (7.4-11.0); MONOCYTES # (AUTO) 0.7 x10^3/uL (0.3-0.8); MONOCYTES % (AUTO) 9.6 % (0.0-13.0); NEUTROPHILS # (AUTO) 4.6 x10^3/uL (2.2-4.8); NEUTROPHILS % (AUTO) 60.3 % (42.0-75.0); RED BLOOD COUNT 3.28 X10^6/uL (3.5-5.4); RED CELL DISTRIBUTION WIDTH 16.1 % (11.6-16.5); WHITE BLOOD COUNT 7.6 X10^3/uL (3.6-10.0)
[2022-07-18 05:10] LABS: ALANINE AMINOTRANSFERASE 13 Units/L (12-78); ALBUMIN 2.7 g/dL (3.4-5.0); ALKALINE PHOSPHATASE 82 Units/L (46-116); ASPARTATE AMINO TRANSFERASE 16 Units/L (15-37); BLOOD UREA NITROGEN 15 mg/dL (7-18); CALCIUM 7.9 mg/dL (8.5-10.1); CARBON DIOXIDE 29.6 mmol/L (21-32); CHLORIDE 101 mmol/L (98-107); COR CA(FOR HYPOALB) 8.9 mg/dL (8.5-10.1); CREATININE 1.14 mg/dL (0.55-1.02); SODIUM 136 mmol/L (136-145); TOTAL PROTEIN 5.9 g/dL (6.4-8.2); eGFR NON BLACK RACES 49 (>60)
[2022-07-18] MEDS: ULTRAM PO PRN (05:58)
[2022-07-18] MEDS: PULMICORT NEB TX 0.5 MG NEB SCH (08:22)
[2022-07-18] MEDS: CHECK PATCH XX SCH (08:35)
[2022-07-18] MEDS: PEPCID 20 MG VIAL 20 MG in NS 50 ML IV 50 ML IV SCH (08:36)
[2022-07-18] MEDS: ZESTRIL TAB 10 MG PO SCH (08:39)
[2022-07-18] MEDS: XANAX PO SCH (08:39)
[2022-07-18] MEDS: PROTONIX INJ 40 MG VIAL IVP SCH (08:39)
[2022-07-18] MEDS: LOVENOX INJ 30 MG SYR SC SCH (08:40)
[2022-07-18] MEDS: NICOTINE PATCH TD SCH (08:40)
[2022-07-18] MEDS: MILK OF MAGNESIA PO SCH (08:50)
[2022-07-18 14:46] VITALS: BP 126/59
== END 2022-07-18 10:15 | disposition home or self-care (01) | DRG 392 ==
LOC: MED/SURG 11:24 → ER 11:24 → MED/SURG 16:46
PROVIDERS: ADMIT Internal Medicine; ATTEND Internal Medicine